=== PATIENT | female | born 1955 | race Caucasian/White ===

== ENCOUNTER 2020-12-26 06:00 | Inpatient (IN) | payer OTHER, SELFPAY ==
[2020-12-26] VITALS (9 sets, daily range): BP systolic 98–124; BP diastolic 51–58; PULSE 79–97; RESP 16–24; TEMP 36.7–36.8; O2SAT 92–100; BMI 41.5
--- NOTE | ~2020-12-26 | US_ITS ---
EXAMINATION: US VENOUS ULTRASOUND WITH DOPPLER LOWER EXTREMITY, LEFT CLINICAL INFORMATION: Edema, swelling and skin ulcers COMPARISON: None TECHNIQUE: Ultrasound of the deep veins is performed from the hip to the calf with compression sonography and color and pulse Doppler assessment. Spectral analysis with color-flow imaging is performed. FINDINGS: The veins in the left leg are not adequately visualized. Exam is nondiagnostic. There is significant soft tissue swelling/edema. US/US venous duplex LE LT IMPRESSION: Nondiagnostic exam.
--- NOTE | ~2020-12-26 | XR_ITS ---
EXAMINATION: XR CHEST CLINICAL INFORMATION: CHF COMPARISON: Previous chest x-ray August 2007 TECHNIQUE: Frontal view of the chest was obtained. FINDINGS: The patient is significantly rotated to the right. Taking into account rotation, the cardiac and mediastinal contours are unremarkable. The lungs are clear. There is no pleural effusion or pneumothorax. No acute bone abnormality is seen. XR/XR chest 1V IMPRESSION: Rotated exam. No evidence for acute disease in the chest.
--- NOTE | 2020-12-26 06:51 | ED_ITS ---
HPI - General Adult General Chief complaint: General Medical Stated complaint: left leg edema with possible infection Time Seen by Provider: 12/26/20 06:51 Source: patient Mode of arrival: EMS Limitations: no limitations History of Present Illness HPI narrative: 65-year-old obese female was brought into EMS for concerns of left lower extremity infection. Past medical history significant for coronary artery disease/ previous NH , hypertension, and uncontrolled diabetes mellitus. Surgical history significant for cardiac stents few years ago. Today this patient comes in with concerns of an infection to her left lower extremity. She states her legs have been more swollen than usual and have been worsening over the past few weeks. She states over the past week she has noted that fluid is coming out of her lower extremity, from the knee down.She states that her doctor prescribed her Lasix to take every other day, however she has not been taking his medication for about 2 months. She denies chest pain, shortness breath, abdominal pain, weakness, fevers, chills, coughs and changes in bowel habits. She also reports a rash to her right groin area, that started about 2 weeks ago and since then has progressively worsened. She states this has happened to her in the past, and has been fungal in nature.She is med noncompliant. She smokes a pack and half a day. Related Data Home Medications Medication Instructions Recorded Confirmed atorvastatin 80 mg tablet 80 mg PO DAILY 12/26/20 12/26/20 clonidine HCl 0.1 mg tablet 0.1 mg PO BID PRN 12/26/20 12/26/20 clopidogrel 75 mg tablet 75 mg PO DAILY 12/26/20 12/26/20 fluoxetine 20 mg capsule 20 mg PO DAILY 12/26/20 12/26/20 gabapentin 300 mg capsule 300 mg PO BID 12/26/20 12/26/20 insulin aspart U-100 100 unit/mL 25 unit SUBCUT TID 12/26/20 12/26/20 (3 mL) subcutaneous pen (Novolog Flexpen U-100 Insulin aspart) insulin glargine 100 unit/mL (3 85 unit SUBCUT BEDTIME 12/26/20 12/26/20 mL) subcutaneous pen (Lantus Solostar U-100 Insulin) ketoconazole 2 % topical cream 1 applic TOPICAL DAILY 12/26/20 12/26/20 lisinopril 5 mg tablet 5 mg PO DAILY 12/26/20 12/26/20 metoprolol tartrate 25 mg tablet 25 mg PO BID 12/26/20 12/26/20 nystatin 100,000 unit/gram topical 1 unit TOPICAL BID 12/26/20 12/26/20 powder (Nystop) oxycodone-acetaminophen 5 mg-325 1 tab PO TID 12/26/20 12/26/20 mg tablet Allergies Allergy/AdvReac Type Severity Reaction Status Date / Time acetaminophen [From PERCOCET] Allergy Unknown ITCHY Verified 12/26/20 12:37 Percocet Allergy Mild Itching Uncoded 12/26/20 12:37 From PERCOCET Allergy Unknown ITCHY Uncoded 12/30/19 15:01 Review of Systems Review of Systems: Constitutional : No Weight loss, No Fever, No Chills ENT/Mouth : No sore throat, No Rhinorrhea Eyes: No Eye Pain, No Swelling Cardiovascular : No Chest Pain, no palpitations Respiratory : No Cough, No Sputum, no shortness of breath Gastrointestinal : no Nausea, No Vomiting, No Diarrhea, No abdominal Pain, no black stools Genitourinary : No Dysuria, No Urinary Frequency Musculoskeletal : No joint pain, No Myalgias, No Joint Swelling Skin : No Skin Lesions, + rash Neuro : No Weakness, No Numbness, No Dizziness, No Headache Psych : No Anxiety/Panic, No Depression Heme/Lymph: No Bruising, No Lymphadenopathy Endocrine : No Polyuria, No Polydipsia All other systems reviewed and are negative [facility] Past Medical History Medical History (Updated 12/26/20 @ 10:18 by Gilberto Ferrera MD) CAD (coronary artery disease) Diabetes mellitus HTN (hypertension) with goal to be determined Neuropathy PAD (peripheral artery disease) Right below-knee amputee Surgical History (Updated 12/26/20 @ 10:18 by Gilberto Ferrera MD) Hx of right BKA Family History Family History (Updated 12/26/20 @ 10:15 by Gilberto Ferrera MD) Other Breast cancer Social History Social History (Updated 12/26/20 @ 10:18 by Gilberto Ferrera MD) Household Members: Spouse Housing: House Do you presently have visiting nurse or other home services: Yes (home health [facility]) Alcohol intake: never Patient Tobacco Use Status: Current everyday Tobacco user Tobacco use type: Cigarette Cigarette Packs Per Day: 1.5 Cigarettes Per Day: 30.0 e-Cigarette/Vaping Use: Never Used Second Hand Smoke Exposure: Yes service: No Current occupational status: disabled Physical Exam Vital Signs: Vital Signs: Last Vital Signs Temp 98.1 F 12/26/20 11:30 Pulse 85 12/26/20 14:45 Resp 16 12/26/20 14:45 BP 98/57 L 12/26/20 14:45 Pulse Ox 99 12/26/20 14:45 Oxygen Flow Rate 2 12/26/20 06:15 Body Mass Index 41.5 Appearance: Alert. Oriented X3. No acute distress. Obese Eyes: PERRLA, No pallor/icterus ENT: Pharynx normal. Oral Mucosa moist Neck: Normal inspection. Neck supple. CVS: Normal heart rate and rhythm. Pulses normal. Respiratory: No respiratory distress. Equal air entry bilateral, fine crackles noted in bilateral lower lobes. Abdomen: Soft and nontender. Bowel sounds are present, no mass palpable, no CVA tenderness Skin: Cellulitis noted to the left lower extremity. Left lower extremity is warm to palpation. below the knee amputation to the right . Extremities: 4+ edema. No calf tenderness Neuro: Oriented X 3. Appearance: Alert. Oriented X3. No acute distress. Eyes: PERRLA, No Nystagmus ENT: Pharynx normal. Oral Mucosa moist Neck: Normal inspection. Neck supple. CVS: Normal heart rate and rhythm. Pulses normal. Respiratory: No respiratory distress. Equal air entry bilateral, no wheezing/rales/rhonchi Abdomen: Soft and nontender. Bowel sounds are present, no mass palpable, no CVA tenderness Skin: Skin warm and dry. Normal skin color. Normal skin turgor. Extremities: No lower extremity edema. No calf tenderness Neuro: Oriented X 3. No motor deficit. No sensory deficit.No cerebellar signs , cranial nerves II-XII intact Medical Decision Making MDM Narrative Medical decision making narrative: White blood cell count slightly elevated as well as a slightly elevated D-dimer, + troponin. Cellulitis is likely to the left lower extremity, necrotizing fasciitis is unlikely as no subcutaneous crepitation, and lactic acid level is normal The patient appears well, and is not septic at this time. Due to the elevated D-dimer a left lower extremity duplex will be ordered to rule out DVT. Elevated troponin secondary to release as there is no chest pain we will recheck for delta change. Plan to admit patient to hospitalist service with Doppler nondiagnostic patient does not have significant pain in the calf area unlikely DVT Lab Data Lab results reviewed: Yes I reviewed the patient's lab results. Result diagrams: 12/26/20 07:45 12/26/20 07:45 Labs: Lab Results 12/26/20 12/26/20 12/26/20 Range/Units 07:45 07:45 07:45 WBC 12.4 H (4.8-10.8) X10*3/uL RBC 5.93 H (4.20-5.50) X10*6/uL Hgb 15.2 (12.0-16.0) g/dl Hct 52.7 H (37-47) % MCV 88.9 (80-98) fL MCH 25.6 L (27.0-33.0) pg MCHC 28.8 L (31.0-35.0) g/dl RDW 19.9 H (11.0-16.0) % Plt Count 244 (160-400) X10*3/uL MPV 9.6 (9.4-12.3) fL Immature Gran % (Auto) 0.6 H (0.0-0.4) % Neut % (Auto) 86.0 H (45-73) % Lymph % (Auto) 6.3 L (20-40) % Ransom % (Auto) 6.7 (2-11) % Eos % (Auto) 0.2 (0-4) % Baso % (Auto) 0.2 (0-2) % Lymph # (Auto) 0.8 L (1.2-4.9) X10*3/uL Ransom # (Auto) 0.8 (0.1-1.2) X10*3/uL Eos # (Auto) 0.0 (0.0-0.4) X10*3/uL Baso # (Auto) 0.0 (0.0-0.2) X10*3/uL Abs Immat Gran (auto) 0.08 H (0.00-0.03) X10*3/uL Absolute Neuts (auto) 10.7 H (2.0-8.3) X10*3/uL Absolute Nucleated RBC 0.000 (0.0-0.012) X10*3/uL Nucleated RBC % (auto) 0.0 (0.0-0.2) /100WBC PT (9.9-13.0) SEC INR (0.9-1.1) APTT (24.1-38.0) SEC D-Dimer NG/ML Sodium 139 (135-145) mmol/L Potassium 5.0 (3.3-5.1) mmol/L Chloride 99 (96-108) mmol/L Carbon Dioxide 32 H (22-29) mmol/L Anion Gap 13 (12-20) BUN 11 (9-16) mg/dL Creatinine 0.85 (0.5-1.4) mg/dL Estim Creat Clear Calc 85.0 Estimated GFR > 60 Random Glucose 104 (60-115) mg/dL Lactic Acid (0.5-2.0) mmol/L Calcium 9.3 (8.4-10.2) mg/dL Total Bilirubin 1.2 H (0.0-1.0) mg/dL Direct Bilirubin 0.5 (0.0-0.5) mg/dL AST 27 (5-31) U/L ALT 16 (0-31) U/L Alkaline Phosphatase 114 (39-117) U/L Troponin I High Sens (<3.5-17.0) ng/L B-Natriuretic Peptide (<100) pg/mL Total Protein 6.9 (6.5-8.0) g/dL Albumin 3.6 (3.5-5.0) g/dL Urine Color Urine Appearance Urine pH (5.0-8.0) Ur Specific [place] (1.005-1.025) Urine Protein (NEG-TRACE) MG/DL Urine Glucose (UA) (NEG) MG/DL Urine Ketones (NEG) MG/DL Urine Blood (NEG) Urine Nitrite (NEG) Ur Leukocyte Esterase (NEG) Urine RBC (0) /HPF Urine WBC (0-4) /HPF Ur Squamous Epith Cells /LPF Urine Bacteria /LPF COVID-19 ([facility]) Negative (Negative) COVID-19 Clin Com See Note 12/26/20 12/26/20 12/26/20 Range/Units 07:45 07:45 07:45 WBC (4.8-10.8) X10*3/uL RBC (4.20-5.50) X10*6/uL Hgb (12.0-16.0) g/dl Hct (37-47) % MCV (80-98) fL MCH (27.0-33.0) pg MCHC (31.0-35.0) g/dl RDW (11.0-16.0) % Plt Count (160-400) X10*3/uL MPV (9.4-12.3) fL Immature Gran % (Auto) (0.0-0.4) % Neut % (Auto) (45-73) % Lymph % (Auto) (20-40) % Ransom % (Auto) (2-11) % Eos % (Auto) (0-4) % Baso % (Auto) (0-2) % Lymph # (Auto) (1.2-4.9) X10*3/uL Ransom # (Auto) (0.1-1.2) X10*3/uL Eos # (Auto) (0.0-0.4) X10*3/uL Baso # (Auto) (0.0-0.2) X10*3/uL Abs Immat Gran (auto) (0.00-0.03) X10*3/uL Absolute Neuts (auto) (2.0-8.3) X10*3/uL Absolute Nucleated RBC (0.0-0.012) X10*3/uL Nucleated RBC % (auto) (0.0-0.2) /100WBC PT 13.3 H (9.9-13.0) SEC INR 1.2 H (0.9-1.1) APTT 33.4 (24.1-38.0) SEC D-Dimer 470 NG/ML Sodium (135-145) mmol/L Potassium (3.3-5.1) mmol/L Chloride (96-108) mmol/L Carbon Dioxide (22-29) mmol/L Anion Gap (12-20) BUN (9-16) mg/dL Creatinine (0.5-1.4) mg/dL Estim Creat Clear Calc Estimated GFR Random Glucose (60-115) mg/dL Lactic Acid 1.1 (0.5-2.0) mmol/L Calcium (8.4-10.2) mg/dL Total Bilirubin (0.0-1.0) mg/dL Direct Bilirubin (0.0-0.5) mg/dL AST (5-31) U/L ALT (0-31) U/L Alkaline Phosphatase (39-117) U/L Troponin I High Sens 50.1 H* (<3.5-17.0) ng/L B-Natriuretic Peptide 648 H (<100) pg/mL Total Protein (6.5-8.0) g/dL Albumin (3.5-5.0) g/dL Urine Color Urine Appearance Urine pH (5.0-8.0) Ur Specific [place] (1.005-1.025) Urine Protein (NEG-TRACE) MG/DL Urine Glucose (UA) (NEG) MG/DL Urine Ketones (NEG) MG/DL Urine Blood (NEG) Urine Nitrite (NEG) Ur Leukocyte Esterase (NEG) Urine RBC (0) /HPF Urine WBC (0-4) /HPF Ur Squamous Epith Cells /LPF Urine Bacteria /LPF COVID-19 ([facility]) (Negative) COVID-19 Clin Com 12/26/20 Range/Units 07:46 WBC (4.8-10.8) X10*3/uL RBC (4.20-5.50) X10*6/uL Hgb (12.0-16.0) g/dl Hct (37-47) % MCV (80-98) fL MCH (27.0-33.0) pg MCHC (31.0-35.0) g/dl RDW (11.0-16.0) % Plt Count (160-400) X10*3/uL MPV (9.4-12.3) fL Immature Gran % (Auto) (0.0-0.4) % Neut % (Auto) (45-73) % Lymph % (Auto) (20-40) % Ransom % (Auto) (2-11) % Eos % (Auto) (0-4) % Baso % (Auto) (0-2) % Lymph # (Auto) (1.2-4.9) X10*3/uL Ransom # (Auto) (0.1-1.2) X10*3/uL Eos # (Auto) (0.0-0.4) X10*3/uL Baso # (Auto) (0.0-0.2) X10*3/uL Abs Immat Gran (auto) (0.00-0.03) X10*3/uL Absolute Neuts (auto) (2.0-8.3) X10*3/uL Absolute Nucleated RBC (0.0-0.012) X10*3/uL Nucleated RBC % (auto) (0.0-0.2) /100WBC PT (9.9-13.0) SEC INR (0.9-1.1) APTT (24.1-38.0) SEC D-Dimer NG/ML Sodium (135-145) mmol/L Potassium (3.3-5.1) mmol/L Chloride (96-108) mmol/L Carbon Dioxide (22-29) mmol/L Anion Gap (12-20) BUN (9-16) mg/dL Creatinine (0.5-1.4) mg/dL Estim Creat Clear Calc Estimated GFR Random Glucose (60-115) mg/dL Lactic Acid (0.5-2.0) mmol/L Calcium (8.4-10.2) mg/dL Total Bilirubin (0.0-1.0) mg/dL Direct Bilirubin (0.0-0.5) mg/dL AST (5-31) U/L ALT (0-31) U/L Alkaline Phosphatase (39-117) U/L Troponin I High Sens (<3.5-17.0) ng/L B-Natriuretic Peptide (<100) pg/mL Total Protein (6.5-8.0) g/dL Albumin (3.5-5.0) g/dL Urine Color STRAW Urine Appearance CLOUDY Urine pH 6.0 (5.0-8.0) Ur Specific [place] 1.015 (1.005-1.025) Urine Protein 2+ H (NEG-TRACE) MG/DL Urine Glucose (UA) NEG (NEG) MG/DL Urine Ketones NEG (NEG) MG/DL Urine Blood 3+ H (NEG) Urine Nitrite NEG (NEG) Ur Leukocyte Esterase 3+ H (NEG) Urine RBC 5-9 H (0) /HPF Urine WBC 76-150 H (0-4) /HPF Ur Squamous Epith Cells NONE /LPF Urine Bacteria TRACE /LPF COVID-19 ([facility]) (Negative) COVID-19 Clin Com Imaging Data Venous US: Radiologist's impression: [address] [id number] Ultrasound Report Signed Patient: Vero Mann MR#: [id number] : 1955 Acct:[id number] Age/Sex: 65 / F ADM Date: 12/26/20 Loc: .ISO 272-[address]: Gilberto Ferrera MD Ordering Physician: Boom Posadas MD Date of Service: 12/26/20 Procedure(s): US venous duplex LE LT Accession Number(s): [id number] cc: Boom Posadas MD~ EXAMINATION:? US VENOUS ULTRASOUND WITH DOPPLER LOWER EXTREMITY, LEFT CLINICAL INFORMATION:? Edema, swelling and skin ulcers COMPARISON:? None TECHNIQUE: Ultrasound of the deep veins is performed from the hip to the calf with compression sonography and color and pulse Doppler assessment. Spectral analysis with color-flow imaging is performed. FINDINGS: The veins in the left leg are not adequately visualized. Exam is nondiagnostic. There is significant soft tissue swelling/edema. US/US venous duplex LE LT IMPRESSION: Nondiagnostic exam. Dictated By: Carmen Mendez MD Signed By: <Electronically signed by Carmen Mendez MD in OV> 12/26/20 1112 Discharge Plan Discharge Clinical Impression: Cellulitis Qualifiers: Site of cellulitis: extremity Site of cellulitis of extremity: lower extremity Laterality: left Qualified Code(s): L03.116 - Cellulitis of left lower limb Patient Disposition: Admitted As Inpatient Discharge Date/Time: 12/26/20 11:00
--- NOTE | 2020-12-26 07:05 | ECG_ITS ---
Test Reason : GENERAL MEDICINE Blood Pressure : / mmHG Vent. Rate : 089 BPM Atrial Rate : 089 BPM P-R Int : 126 ms QRS Dur : 086 ms QT Int : 358 ms P-R-T Axes : 064 065 015 degrees QTc Int : 435 ms Normal sinus rhythm Low voltage QRS Cannot rule out Anterior infarct , age undetermined Nonspecific T wave abnormality Abnormal ECG When compared with ECG of 26-AUG-2007 17:40, Heart rate has decreased Referred By: Boom Posadas Electronically Signed By:ADAM GUTIÉRREZ
--- NOTE | 2020-12-26 07:22 | PC.NURSE ---
Addendum entered by Neetu Robertson RN 12/26/20 15:28: 1525 Repositioned patient, used wedges to relieve back pressure, obtaining Jamar bed pump also for pressure relief. HOB elevated. Patient dozing and no c/o any increased pain. Addendum entered by Neetu Robertson RN 12/26/20 14:47: Repositioned and assisted with complete skin assessment. See recommendations from the wound nurse. f/c emptied for 1700ml. po intake limited, only took in 60ml. ate lunch tolerated well. Her pain level at 1330 has decreased to her baseline 3-07/22. The plan of care was explained to the patient. Her vitals remain stable and she is resting. Addendum entered by Neetu Robertson RN 12/26/20 13:46: Admission assessment completed. LLE Cellulitis. Wound care nurse assisting with wound assessment. Patient is W/C bound and pivot only. Her vitals are stable. She was c/o that she hasn't eaten, POC BS 116. Lunch given. F/C in place. She has ongoing pain at home 3-07/22. Medicated fo rpain prior to wound assessment. Original Note: PT IS AWAKE AND ALERT, CURRENTLY FEELS LIKE SHE IS GOING TO VOMIT. WILL PLACE [facility]OL[facility] GET IV ACESS AND LABS
[2020-12-26 07:54] LABS: MANUAL DIFF FLAG NO
[2020-12-26 08:02] LABS: INTERNATIONAL NORM RATIO 1.2 (0.9-1.1); Prothrombin Time 13.3 SEC (9.9-13.0)
[2020-12-26 08:05] LABS: D Dimer 470 NG/ML; Partial Thromboplastin Time 33.4 SEC (24.1-38.0)
[2020-12-26 08:08] LABS: Lactic Acid 1.1 mmol/L (0.5-2.0)
[2020-12-26 08:13] LABS: Alanine Aminotransferase 16 U/L (0-31); Albumin Level 3.6 g/dL (3.5-5.0); Alkaline Phosphatase 114 U/L (39-117); Anion Gap 13 (12-20); Aspartate Amino Transferase 27 U/L (5-31); Bilirubin Direct 0.5 mg/dL (0.0-0.5); Bilirubin Total 1.2 mg/dL (0.0-1.0); Blood Urea Nitrogen 11 mg/dL (9-16); COVID-19 Test Negative (Negative); Calcium 9.3 mg/dL (8.4-10.2); Carbon Dioxide 32 mmol/L (22-29); Chloride 99 mmol/L (96-108); Estimated Glomerular Filt Rate > 60; Glucose Random 104 mg/dL (60-115); Sodium 139 mmol/L (135-145); Total Protein 6.9 g/dL (6.5-8.0)
[2020-12-26 08:16] LABS: Basophils Percent Auto 0.2 % (0-2); Eosinophils Percent Auto 0.2 % (0-4); Hematocrit 52.7 % (37-47); Hemoglobin 15.2 g/dl (12.0-16.0); Imm Gran Abs Auto 0.08 X10*3/uL (0.00-0.03); Imm Gran Pct Auto 0.6 % (0.0-0.4); Lymphocytes Absolute Auto 0.8 X10*3/uL (1.2-4.9); Lymphocytes Percent Auto 6.3 % (20-40); Mean Corpuscular HGB Conc 28.8 g/dl (31.0-35.0); Mean Corpuscular Hemoglobin 25.6 pg (27.0-33.0); Mean Corpuscular Volume 88.9 fL (80-98); Mean Platelet Volume 9.6 fL (9.4-12.3); Monocytes Absolute Auto 0.8 X10*3/uL (0.1-1.2); Monocytes Percent Auto 6.7 % (2-11); Neutrophils Absolute Auto 10.7 X10*3/uL (2.0-8.3); Platelet Count 244 X10*3/uL (160-400); Red Blood Count 5.93 X10*6/uL (4.20-5.50); Red Cell Distribution Width 19.9 % (11.0-16.0); White Blood Count 12.4 X10*3/uL (4.8-10.8)
[2020-12-26 08:20] LABS: B Type Natriuretic Peptide 648 pg/mL (<100); Troponin-I High Sensitivity 50.1 ng/L (<3.5-17.0)
[2020-12-26 08:21] LABS: Appearance Urine CLOUDY; Color Urine STRAW; Glucose Urine UA NEG (NEG); Leukocyte Esterase Urine 3+ (NEG); Nitrite Urine NEG (NEG); Specific Gravity - Urine 1.015 (1.005-1.025); UACC Culture Trigger YES; Urine Blood 3+ (NEG); Urine Ketones NEG (NEG); Urine Protein 2+ MG/DL (NEG-TRACE)
[2020-12-26] MEDS: Furosemide 40 MG/4 ML VIAL IVPUSH (08:22)
[2020-12-26 08:33] LABS: Bacteria Urine TRACE /LPF
--- NOTE | 2020-12-26 09:13 | PM.IMHP ---
History of Present Illness Date of Service: 12/26/20 Chief Complaint: Left leg pain and weeping This is a 65-year-old female with a past medical history as outlined below who presents to the hospital with complaints of left leg redness, tenderness, swelling and weeping of 3-4 days duration. She reports that her dressings were soaking multiple times throughout the day. She denied any foul smelling drainage.reports that she has previously had cellulitis and in fact necrotizing fasciitis of the left lower extremity many years ago. She denies any fevers but does report that she has chronic chills. She denies any chest pain, shortness of breath, abdominal pain, nausea, vomiting. She reports that she attempted to get in contact with her primary care provider yesterday and was unable to do so and so she presented to the emergency room. Upon arrival to the emergency room, she was found to have left lower extremity skin changes concerning for cellulitis. She had blood cultures drawn and was given a dose of IV Kefzol on admission was requested. Review of Systems Review of Systems: General - no fevers or chills Cardiovascular - no chest pain Respiratory - no shortness of breath or cough Abdominal- no abdominal pain, nausea, vomiting, diarrhea Yes all other systems are reviewed and are negative [facility] Medical History (Updated 12/26/20 @ 10:18 by Gilberto Ferrera MD) CAD (coronary artery disease) Diabetes mellitus HTN (hypertension) with goal to be determined Neuropathy PAD (peripheral artery disease) Right below-knee amputee Family History (Updated 12/26/20 @ 10:15 by Gilberto Fererra MD) Other Breast cancer Surgical History (Updated 12/26/20 @ 10:18 by Gilberto Ferrera MD) Hx of right BKA Social History (Updated 12/26/20 @ 10:18 by Gilberto Ferrera MD) Alcohol intake: never Patient Tobacco Use Status: Current everyday Tobacco user Advance Directives: No Meds Allergies Allergy/AdvReac Type Severity Reaction Status Date / Time acetaminophen [From PERCOCET] Allergy Unknown ITCHY Unverified 12/30/19 15:01 From PERCOCET Allergy Unknown ITCHY Uncoded 12/30/19 15:01 Percocet Allergy Unknown Uncoded 10/30/11 00:00 Active Medications: Current Medications Generic Name Dose Route Start Last Admin Trade Name Freq PRN Reason Stop Dose Admin Enoxaparin Sodium 40 mg 12/26/20 09:15 Enoxaparin Sodium 40 Mg/0.4 Ml Syringe SUBCUT Q24H [facility] Cefazolin Sodium 1 gm/ Sodium 50 mls @ 100 mls/hr 12/26/20 15:00 Chloride IV Q8H [facility] Insulin Human Lispro 0 unit 12/26/20 11:30 Insulin Lispro 100 Unit/Ml 3 Ml Vial SUBCUT QIDACHS [facility] Protocol Ondansetron HCl 4 mg 12/26/20 09:09 Ondansetron Hcl 4 Mg/2 Ml Vial IVPUSH Q8H PRN Nausea and Vomiting Pharmacy Consult 1 each 12/26/20 08:35 Consult Rx Perform Med Rec MISCELLANE ONCE PRN Consult order Sodium Chloride 3 ml 12/26/20 16:00 0.9 % Sodium Chloride Flush 3 Ml Syringe IVFLUSH QSHIFT [facility] Home Medications Medication Instructions Recorded Confirmed Last Taken Type atorvastatin 80 mg tablet 80 mg PO DAILY 12/26/20 Unknown History clonidine HCl 0.1 mg tablet 0.1 mg PO BID PRN 12/26/20 Unknown History clopidogrel 75 mg tablet 75 mg PO DAILY 12/26/20 Unknown History fluoxetine 20 mg capsule 20 mg PO DAILY 12/26/20 Unknown History fluticasone propionate 50 1 spray INTRANASAL QAM 12/26/20 Unknown History mcg/actuation nasal spray,suspension furosemide 20 mg tablet 20 mg PO DAILY 12/26/20 Unknown History gabapentin 300 mg capsule 300 mg PO BID 12/26/20 Unknown History insulin glargine 100 unit/mL (3 85 unit SUBCUT DAILY 12/26/20 Unknown History mL) subcutaneous pen (Lantus Solostar U-100 Insulin) ketoconazole 2 % topical cream 1 applic TOPICAL DAILY 12/26/20 Unknown History lisinopril 5 mg tablet 5 mg PO DAILY 12/26/20 Unknown History metoprolol tartrate 25 mg tablet 25 mg PO BID 12/26/20 Unknown History nystatin 100,000 unit/gram topical 1 unit TOPICAL BID 12/26/20 Unknown History powder (Nystop) oxycodone-acetaminophen 5 mg-325 1 tab PO TID 12/26/20 Unknown History mg tablet Physical Exam Vital Signs and Narrative: Vital Signs: Last Vital Signs Temp 978 F H 12/26/20 06:15 Pulse 79 12/26/20 06:15 Resp 18 12/26/20 06:15 BP 118/58 L 12/26/20 06:15 Pulse Ox 100 12/26/20 06:15 Oxygen Flow Rate 2 12/26/20 06:15 Body Mass Index 41.5 Const: Other: Constitutional - Awake and Alert, No apparent distress Eyes - PERRLA, EOMI Cardiovascular - S1S2, RRR, No edema Respiratory - Normal lung expansion, Normal respiratory effort, No respiratory distress, CTA bilaterally Gastrointestinal - NT / ND; +BS; No rebound or guarding - No CVA tenderness Extremities - R BKA, LLE -- erythema, tenderness, edema from the knee below >50% of the limb Musculoskeletal - Normal inspection, normal ROM Skin - Warm/Dry, see pictures below Neurological - Alert & oriented x3, No focal deficit Psychological - Appropriate affect Results Labs CBC and Chem 7: 12/26/20 07:45 12/26/20 07:45 Labs: Laboratory Results - last 24 hr 12/26/20 12/26/20 12/26/20 07:45 07:45 07:45 MCV 88.9 MCH 25.6 L MCHC 28.8 L RDW 19.9 H Plt Count 244 MPV 9.6 Immature Gran % (Auto) 0.6 H Neut % (Auto) 86.0 H Lymph % (Auto) 6.3 L Carter % (Auto) 6.7 Eos % (Auto) 0.2 Baso % (Auto) 0.2 Lymph # (Auto) 0.8 L Carter # (Auto) 0.8 Eos # (Auto) 0.0 Baso # (Auto) 0.0 Abs Immat Gran (auto) 0.08 H Absolute Neuts (auto) 10.7 H Absolute Nucleated RBC 0.000 Nucleated RBC % (auto) 0.0 PT INR APTT D-Dimer Anion Gap 13 Estim Creat Clear Calc 85.0 Estimated GFR > 60 Random Glucose 104 Lactic Acid Calcium 9.3 Total Bilirubin 1.2 H Direct Bilirubin 0.5 AST 27 ALT 16 Alkaline Phosphatase 114 Troponin I High Sens B-Natriuretic Peptide Total Protein 6.9 Albumin 3.6 Urine Color Urine Appearance Urine pH Ur Specific [place] Urine Protein Urine Glucose (UA) Urine Ketones Urine Blood Urine Nitrite Ur Leukocyte Esterase Urine RBC Urine WBC Ur Squamous Epith Cells Urine Bacteria COVID-19 ([facility]) Negative COVID-19 Clin Com See Note 12/26/20 12/26/20 12/26/20 07:45 07:45 07:45 MCV MCH MCHC RDW Plt Count MPV Immature Gran % (Auto) Neut % (Auto) Lymph % (Auto) Carter % (Auto) Eos % (Auto) Baso % (Auto) Lymph # (Auto) Carter # (Auto) Eos # (Auto) Baso # (Auto) Abs Immat Gran (auto) Absolute Neuts (auto) Absolute Nucleated RBC Nucleated RBC % (auto) PT 13.3 H INR 1.2 H APTT 33.4 D-Dimer 470 Anion Gap Estim Creat Clear Calc Estimated GFR Random Glucose Lactic Acid 1.1 Calcium Total Bilirubin Direct Bilirubin AST ALT Alkaline Phosphatase Troponin I High Sens 50.1 H* B-Natriuretic Peptide 648 H Total Protein Albumin Urine Color Urine Appearance Urine pH Ur Specific [place] Urine Protein Urine Glucose (UA) Urine Ketones Urine Blood Urine Nitrite Ur Leukocyte Esterase Urine RBC Urine WBC Ur Squamous Epith Cells Urine Bacteria COVID-19 ([facility]) COVID-19 [email or web address] Com 12/26/20 07:46 MCV MCH MCHC RDW Plt Count MPV Immature Gran % (Auto) Neut % (Auto) Lymph % (Auto) Carter % (Auto) Eos % (Auto) Baso % (Auto) Lymph # (Auto) Carter # (Auto) Eos # (Auto) Baso # (Auto) Abs Immat Gran (auto) Absolute Neuts (auto) Absolute Nucleated RBC Nucleated RBC % (auto) PT INR APTT D-Dimer Anion Gap Estim Creat Clear Calc Estimated GFR Random Glucose Lactic Acid Calcium Total Bilirubin Direct Bilirubin AST ALT Alkaline Phosphatase Troponin I High Sens B-Natriuretic Peptide Total Protein Albumin Urine Color STRAW Urine Appearance CLOUDY Urine pH 6.0 Ur Specific [place] 1.015 Urine Protein 2+ H Urine Glucose (UA) NEG Urine Ketones NEG Urine Blood 3+ H Urine Nitrite NEG Ur Leukocyte Esterase 3+ H Urine RBC 5-9 H Urine WBC 76-150 H Ur Squamous Epith Cells NONE Urine Bacteria TRACE COVID-19 ([facility]) COVID-19 Clin Com Imaging Radiologist's Impressions: Impressions Chest X-Ray 12/26/20 07:05 IMPRESSION: Rotated exam. No evidence for acute disease in the chest. Assessment and Plan (1) Cellulitis: Qualifiers: Laterality: left Site of cellulitis: extremity Site of cellulitis of extremity: lower extremity Qualified Code(s): L03.116 - Cellulitis of left lower limb Status: Acute This is a 65 yo F with multiple medical problems including DM, CAD - s/p [place], 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 She has cellulitis of the LLE effecting > 50% of the limb. 1. Cellulitis of the LLE >50% of the limb. Although the patient is not currently septic, she has multiple risk factors for progression to sepsis including uncontrolled DM, obesity, prior narcotizing fasciits. continue IV kefzol, if no improvement will change antibiotics and consult ID follow up blood cultures LLE ultrasound to rule out DVT 2. Elevated HS trop-I check repeat EKG stat no chest pain, likely above 3. Elevated BNP no evidence of CHF clinically observe 4. DM sliding scale, continue long acting once med rec done 5. HLD statin 6. Mood continue baseline meds Med rec not completed at the time of this note, will continue baseline meds (as appropriate) once med rec completed. Full Code DVT pptx, Lovenox HCP -- her significant other Quality Stroke Does the patient have a stroke diagnosis?: No VTE Prior VTE?: No VTE Risk Level:: Medical - moderate - high VTE Device Contraindication: Treatment Not Indicated VTE Drug Contraindication: N/A - Med Ordered
[2020-12-26] MEDS: ondansetron HCL 4 MG/2 ML VIAL IVPUSH (09:30)
[2020-12-26] MEDS: Enoxaparin Sodium 40 MG/0.4 ML SYRINGE SUBCUT (09:30)
[2020-12-26] MEDS: Morphine Sulfate 4 MG/ML CARTRIDGE IVPUSH (10:34)
--- NOTE | 2020-12-26 11:13 | PHA.MEDREC ---
Pharmacy Consult ? Medication Reconciliation Pharmacy has completed the medication reconciliation.
[2020-12-26 12:58] LABS: Glucose, Whole Blood 116 mg/dL (60-115)
[2020-12-26] MEDS: Morphine Sulfate 2 MG/ML CARTRIDGE IVPUSH ×2 (12:59→16:42)
--- NOTE | 2020-12-26 14:31 | MHC.CM.PN ---
Attempted to meet with patient in regards to discharge planning. Nursing care currently being provided. Spoke with patient's , Filipe via telephone at [phone]. Patient lives with Filipe, uses a wheelchair for mobility and has INFORMATION [employer] TECHNICIAN's through [facility]. PCP verified. Patient received Moderna vaccines on 09/12 and 10/10. IMM explained and left at patient's bedside. Filipe will transport patient home when medically stable. Continue to monitor for d/c needs.
--- NOTE | 2020-12-26 16:14 | PC.NURSE ---
Skin/Wound Assessment completed today. Patient has moisture dermatitis under abdominal folds, Interdry applied to area. Also, has a stgae 2 pressure injury on left buttock- silver alginate applied and covered with foam. Patient has cellulitis/venous stasis ulcers to left lower extremity. EPC cream applied on edges of ulcers, silver alginate to wound beds, covered with gauze and roll gauze then liudmila bandages.
[2020-12-26 16:32] LABS: Glucose, Whole Blood 134 mg/dL (60-115)
[2020-12-26] MEDS: 0.9 % Sodium Chloride Flush 3 ML SYRINGE IVFLUSH (16:43)
--- NOTE | 2020-12-26 17:55 | PC.NURSE ---
Pt presents to the unit from the ED with a chief complaint of LLE swelling and redness with a concern for infection. Adm dx is cellulitis. She is a/o, rr even and labored when she exerts herself. She is noted to have a right bka. Her LLE was wrapped by the wound nurse. See wound nurse note. Pt c/o of generalized pain and reports difficulty getting comfortable. She has been medicated per the emar for pain with good effect. At current she is resting comfortably in her room.
[2020-12-26] MEDS: Insulin Glargine,Hum.rec.anlog 100 UNIT/ML 10 ML VIAL 50 UNIT SUBCUT (21:07)
[2020-12-26] MEDS: Metoprolol Tartrate 25 MG TABLET PO (21:07)
[2020-12-26] MEDS: Gabapentin 300 MG CAPSULE PO (21:07)
[2020-12-26 21:08] LABS: Glucose, Whole Blood 146 mg/dL (60-115)
[2020-12-27] VITALS (9 sets, daily range): BP systolic 100–130; BP diastolic 45–66; PULSE 71–80; RESP 14–20; TEMP 36.3–37.4; O2SAT 93–96; BMI 41.5
[2020-12-27] MEDS: 0.9 % Sodium Chloride Flush 3 ML SYRINGE IVFLUSH ×4 (01:48→20:49)
[2020-12-27] MEDS: Morphine Sulfate 2 MG/ML CARTRIDGE IVPUSH ×5 (01:57→23:44)
[2020-12-27 07:17] LABS: Hematocrit 47.5 % (37-47); Hemoglobin 13.5 g/dl (12.0-16.0); Mean Corpuscular HGB Conc 28.4 g/dl (31.0-35.0); Mean Corpuscular Hemoglobin 25.6 pg (27.0-33.0); Mean Platelet Volume 9.5 fL (9.4-12.3); Platelet Count 223 X10*3/uL (160-400); Red Blood Count 5.28 X10*6/uL (4.20-5.50); Red Cell Distribution Width 19.7 % (11.0-16.0); White Blood Count 10.1 X10*3/uL (4.8-10.8)
[2020-12-27 07:21] LABS: Glucose, Whole Blood 110 mg/dL (60-115)
[2020-12-27 07:37] LABS: Anion Gap 13 (12-20); Blood Urea Nitrogen 14 mg/dL (9-16); Calcium 8.7 mg/dL (8.4-10.2); Carbon Dioxide 31 mmol/L (22-29); Chloride 101 mmol/L (96-108); Estimated Glomerular Filt Rate > 60; Glucose Random 133 mg/dL (60-115); Potassium 5.2 mmol/L (3.3-5.1); Sodium 140 mmol/L (135-145)
[2020-12-27] MEDS: lisinopriL 5 MG TABLET PO (08:26)
[2020-12-27] MEDS: Metoprolol Tartrate 25 MG TABLET PO ×2 (08:26→20:48)
[2020-12-27] MEDS: FLUoxetine HCl 20 MG CAPSULE PO (08:27)
[2020-12-27] MEDS: Clopidogrel Bisulfate 75 MG TABLET PO (08:27)
[2020-12-27] MEDS: Enoxaparin Sodium 40 MG/0.4 ML SYRINGE SUBCUT (08:27)
[2020-12-27] MEDS: Gabapentin 300 MG CAPSULE PO ×2 (08:27→20:48)
[2020-12-27] MEDS: oxyCODONE HCl Immed Release 5 MG TABLET PO ×2 (09:58→20:49)
--- NOTE | 2020-12-27 11:15 | PM.IMPN ---
Progress Note: A&P (1) Cellulitis: Status: Acute Assessment and Plan: This is a 65 yo F with multiple medical problems including DM, CAD - s/p [place], 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 She has cellulitis of the LLE effecting > 50% of the limb. Cellulitis of the LLE >50% of the limb. Although the patient is not currently septic, she has multiple risk factors for progression to sepsis including uncontrolled DM, obesity, prior narcotizing fasciits. continue IV kefzol, if no improvement will change antibiotics and consult ID cx neg after 24hrs LLE ultrasound neg for DVT daily wound dressing Elevated HS trop-I No ischemic changes on EKG no chest pain, likely above Elevated BNP no evidence of CHF clinically observe DM sliding scale, continue long acting once med rec done HLD statin Mood continue baseline meds Full Code DVT pptx, Lovenox HCP -- her significant other Attending Dr. Ferrera Subjective Subjective Date of Service: 12/27/20 Review of Systems Follow up cellulitis left lower extremity leg pain, moderate Denies chest pain, shortness of breath, nausea, vomiting, diarrhea All other systems are reviewed and are negative Physical Exam Vital Signs: Vital Signs: Last Vital Signs Temp 97.5 F 12/27/20 07:22 Pulse 76 12/27/20 07:22 Resp 18 12/27/20 07:22 BP 130/66 12/27/20 07:22 Pulse Ox 95 12/27/20 07:22 Oxygen Flow Rate 2 12/26/20 06:15 Body Mass Index 41.5 Appearing in no acute distress lung sounds are clear to auscultation heart regular rate rhythm, clear S1, S2 positive bowel sounds, abdomen is soft, nontender neuro patient is alert x3, no focal deficits dressing to left lower extremity, wound not visualized Objective Data Current Medications Generic Name Dose Route Start Last Admin Trade Name Freq PRN Reason Stop Dose Admin Atorvastatin Calcium 80 mg 12/27/20 21:00 Atorvastatin Calcium 80 Mg Tablet PO BEDTIME [facility] Clonidine HCl 0.1 mg 12/26/20 12:13 Clonidine Hcl 0.1 Mg Tablet PO BID PRN anxiety Protocol Clopidogrel Bisulfate 75 mg 12/26/20 12:15 12/27/20 08:27 Clopidogrel Bisulfate 75 Mg Tablet PO 75 mg DAILY [facility] Administration Enoxaparin Sodium 40 mg 12/26/20 10:00 12/27/20 08:27 Enoxaparin Sodium 40 Mg/0.4 Ml Syringe SUBCUT 40 mg Q24H [facility] Administration Fluoxetine HCl 20 mg 12/27/20 09:00 12/27/20 08:27 Fluoxetine Hcl 20 Mg Capsule PO 20 mg DAILY [facility] Administration Gabapentin 300 mg 12/26/20 21:00 12/27/20 08:27 Gabapentin 300 Mg Capsule PO 300 mg BID [facility] Administration Cefazolin Sodium 1 gm/ Sodium 50 mls @ 100 mls/hr 12/26/20 17:00 12/27/20 09:03 Chloride IV Infused Q8H [facility] Infusion Insulin Glargine 50 unit 12/26/20 21:00 12/26/20 21:07 Insulin Glargine,Hum.Rec.Anlog 100 Unit/Ml 10 Ml Vial SUBCUT 50 unit BEDTIME [facility] Administration Insulin Human Lispro 0 unit 12/26/20 11:30 12/27/20 07:21 Insulin Lispro 100 Unit/Ml 3 Ml Vial SUBCUT Not Given QIDACHS [facility] Protocol Lisinopril 5 mg 12/27/20 09:00 12/27/20 08:26 Lisinopril 5 Mg Tablet PO 5 mg DAILY [facility] Administration Protocol Metoprolol Tartrate 25 mg 12/26/20 21:00 12/27/20 08:26 Metoprolol Tartrate 25 Mg Tablet PO 25 mg BID [facility] Administration Protocol Morphine Sulfate 2 mg 12/26/20 12:35 12/27/20 06:25 Morphine Sulfate 2 Mg/Ml Cartridge IVPUSH 2 mg Q4H PRN Administration Pain, Severe (Pain Scale 7-10) Protocol Ondansetron HCl 4 mg 12/26/20 09:09 Ondansetron Hcl 4 Mg/2 Ml Vial IVPUSH Q8H PRN Nausea and Vomiting Oxycodone HCl 5 mg 12/26/20 12:15 12/27/20 09:58 Oxycodone Hcl Immed Release 5 Mg Tablet PO 5 mg Q6H PRN Administration Pain, Severe (Pain Scale 7-10) Pharmacy Consult 1 each 12/26/20 08:35 Consult Rx Perform Med Rec MISCELLANE ONCE PRN Consult order Sodium Chloride 3 ml 12/26/20 16:00 12/27/20 08:28 0.9 % Sodium Chloride Flush 3 Ml Syringe IVFLUSH 3 ml QSHIFT [facility] Administration Labs CBC & Chem 7: 12/27/20 07:06 12/27/20 07:06 Labs: Laboratory Results - last 24 hr 12/26/20 12/26/20 12/26/20 12:53 16:28 21:04 MCV MCH MCHC RDW Plt Count MPV Absolute Nucleated RBC Nucleated RBC % (auto) Anion Gap Estim Creat Clear Calc Estimated GFR POC Glucose 116 H 134 H 146 H Random Glucose Calcium 12/27/20 12/27/20 12/27/20 07:06 07:06 07:16 MCV 90.0 MCH 25.6 L MCHC 28.4 L RDW 19.7 H Plt Count 223 MPV 9.5 Absolute Nucleated RBC 0.000 Nucleated RBC % (auto) 0.0 Anion Gap 13 Estim Creat Clear Calc 85.0 Estimated GFR > 60 POC Glucose 110 Random Glucose 133 H Calcium 8.7 D Microbiology Microbiology Results: Microbiology 12/26/20 07:46 Blood - Venous Blood Culture - Preliminary No growth after 24 hours. 12/26/20 07:46 Blood - Venous Blood Culture - Preliminary No growth after 24 hours. Quality Stroke Does the patient have a stroke diagnosis?: No VTE Prior VTE?: No VTE Risk Level:: Medical - moderate - high VTE Device Contraindication: Treatment Not Indicated VTE Drug Contraindication: N/A - Med Ordered
[2020-12-27 11:24] LABS: Glucose, Whole Blood 136 mg/dL (60-115)
--- NOTE | 2020-12-27 14:08 | MHC.CLN ---
NUTRITION CONSULT STAGE II WOUND TO LEFT BUTTOCK. ADDED GLUCERNA BID AND JEY BID TO PROVIDE 630 KCAL, 25 G PROTEIN TO PROMOTE WOUND HEALING.
[2020-12-27 16:17] LABS: Glucose, Whole Blood 155 mg/dL (60-115)
--- NOTE | 2020-12-27 16:25 | W.PM.IDCN ---
History of Present Illness Data of Consult Service Date: 12/27/20 Requesting physician: Latosha Mcgee Primary Care Provider: Ruiz Moreira MD [facility] Reason for consult: left leg erythema She presents with one week leg erythema She has no fever or chills She has weakness and discharge Review of Systems Review of Systems: Yes all other systems are reviewed and are negative [facility] Past Medical History Medical History CAD (coronary artery disease) Diabetes mellitus HTN (hypertension) with goal to be determined Neuropathy PAD (peripheral artery disease) Right below-knee amputee Family History Family History Other Breast cancer Surgical History Surgical History Hx of right BKA Social History Social History Household Members: Spouse Housing: House Do you presently have visiting nurse or other home services: Yes (home health [facility]) Alcohol intake: never Patient Tobacco Use Status: Current everyday Tobacco user Tobacco use type: Cigarette Cigarette Packs Per Day: 1.5 Cigarettes Per Day: 30.0 e-Cigarette/Vaping Use: Never Used Second Hand Smoke Exposure: Yes service: No Current occupational status: disabled Meds Allergies Allergy/AdvReac Type Severity Reaction Status Date / Time acetaminophen [From PERCOCET] Allergy Unknown ITCHY Verified 12/26/20 12:37 Percocet Allergy Mild Itching Uncoded 12/26/20 12:37 From PERCOCET Allergy Unknown ITCHY Uncoded 12/30/19 15:01 Active Medications: Current Medications Generic Name Dose Route Start Last Admin Trade Name Freq PRN Reason Stop Dose Admin Atorvastatin Calcium 80 mg 12/27/20 21:00 Atorvastatin Calcium 80 Mg Tablet PO BEDTIME [facility] Clonidine HCl 0.1 mg 12/26/20 12:13 Clonidine Hcl 0.1 Mg Tablet PO BID PRN anxiety Protocol Clopidogrel Bisulfate 75 mg 12/26/20 12:15 12/27/20 08:27 Clopidogrel Bisulfate 75 Mg Tablet PO 75 mg DAILY [facility] Administration Enoxaparin Sodium 40 mg 12/26/20 10:00 12/27/20 08:27 Enoxaparin Sodium 40 Mg/0.4 Ml Syringe SUBCUT 40 mg Q24H [facility] Administration Fluoxetine HCl 20 mg 12/27/20 09:00 12/27/20 08:27 Fluoxetine Hcl 20 Mg Capsule PO 20 mg DAILY [facility] Administration Gabapentin 300 mg 12/26/20 21:00 12/27/20 08:27 Gabapentin 300 Mg Capsule PO 300 mg BID [facility] Administration Cefazolin Sodium 1 gm/ Sodium 50 mls @ 100 mls/hr 12/26/20 17:00 12/27/20 09:03 Chloride IV Infused Q8H [facility] Infusion Insulin Glargine 50 unit 12/26/20 21:00 12/26/20 21:07 Insulin Glargine,Hum.Rec.Anlog 100 Unit/Ml 10 Ml Vial SUBCUT 50 unit BEDTIME [facility] Administration Insulin Human Lispro 0 unit 12/26/20 11:30 12/27/20 11:42 Insulin Lispro 100 Unit/Ml 3 Ml Vial SUBCUT Not Given QIDACHS [facility] Protocol Lisinopril 5 mg 12/27/20 09:00 12/27/20 08:26 Lisinopril 5 Mg Tablet PO 5 mg DAILY [facility] Administration Protocol Metoprolol Tartrate 25 mg 12/26/20 21:00 12/27/20 08:26 Metoprolol Tartrate 25 Mg Tablet PO 25 mg BID [facility] Administration Protocol Morphine Sulfate 2 mg 12/26/20 12:35 12/27/20 14:36 Morphine Sulfate 2 Mg/Ml Cartridge IVPUSH 2 mg Q4H PRN Administration Pain, Severe (Pain Scale 7-10) Protocol Ondansetron HCl 4 mg 12/26/20 09:09 Ondansetron Hcl 4 Mg/2 Ml Vial IVPUSH Q8H PRN Nausea and Vomiting Oxycodone HCl 5 mg 12/26/20 12:15 12/27/20 09:58 Oxycodone Hcl Immed Release 5 Mg Tablet PO 5 mg Q6H PRN Administration Pain, Severe (Pain Scale 7-10) Pharmacy Consult 1 each 12/26/20 08:35 Consult Rx Perform Med Rec MISCELLANE ONCE PRN Consult order Sodium Chloride 3 ml 12/26/20 16:00 12/27/20 16:08 0.9 % Sodium Chloride Flush 3 Ml Syringe IVFLUSH 3 ml QSHIFT [facility] Administration Home Medications Medication Instructions Recorded Confirmed Last Taken Type atorvastatin 80 mg tablet 80 mg PO DAILY 12/26/20 12/26/20 Unknown History clonidine HCl 0.1 mg tablet 0.1 mg PO BID PRN 12/26/20 12/26/20 Unknown History clopidogrel 75 mg tablet 75 mg PO DAILY 12/26/20 12/26/20 Unknown History fluoxetine 20 mg capsule 20 mg PO DAILY 12/26/20 12/26/20 Unknown History gabapentin 300 mg capsule 300 mg PO BID 12/26/20 12/26/20 Unknown History insulin aspart U-100 100 unit/mL 25 unit SUBCUT TID 12/26/20 12/26/20 Unknown History (3 mL) subcutaneous pen (Novolog Flexpen U-100 Insulin aspart) insulin glargine 100 unit/mL (3 85 unit SUBCUT BEDTIME 12/26/20 12/26/20 Unknown History mL) subcutaneous pen (Lantus Solostar U-100 Insulin) ketoconazole 2 % topical cream 1 applic TOPICAL DAILY 12/26/20 12/26/20 Unknown History lisinopril 5 mg tablet 5 mg PO DAILY 12/26/20 12/26/20 Unknown History metoprolol tartrate 25 mg tablet 25 mg PO BID 12/26/20 12/26/20 Unknown History nystatin 100,000 unit/gram topical 1 unit TOPICAL BID 12/26/20 12/26/20 Unknown History powder (Nystop) oxycodone-acetaminophen 5 mg-325 1 tab PO TID 12/26/20 12/26/20 Unknown History mg tablet Physical Exam Vital Signs: Vital Signs: Last Vital Signs Temp 98.8 F 12/27/20 15:57 Pulse 76 12/27/20 15:57 Resp 14 12/27/20 15:57 BP 106/46 L 12/27/20 15:57 Pulse Ox 94 12/27/20 15:57 Oxygen Flow Rate 2 12/26/20 06:15 Body Mass Index 41.5 Const: General: cooperative HENMT: Head: Yes normal to inspection Mouth: Normal oral and palatal mucosa present Resp: Effort & Inspection: normal respiratory effort Cardio: Rate: regular rate Rhythm: regular rhythm GI: Palpation (GI): Soft to palpation and nontender Extrem: Other: left leg mild erythema,amp toes Results Labs CBC & Chem 7: 12/27/20 07:06 12/27/20 07:06 Labs: Short CBC 12/27/20 Range/Units 07:06 WBC 10.1 (4.8-10.8) X10*3/uL Hgb 13.5 (12.0-16.0) g/dl Hct 47.5 H (37-47) % Plt Count 223 (160-400) X10*3/uL BMP 12/27/20 07:06 Sodium 140 Potassium 5.2 H Chloride 101 Carbon Dioxide 31 H BUN 14 Creatinine 0.85 Calcium 8.7 D Microbiology Microbiology Results: Microbiology 12/26/20 Unknown Urine Catheterized - Su Catheter Urine Culture - Preliminary Gram negative kelsey 12/26/20 07:46 Blood - Venous Blood Culture - Preliminary No growth after 24 hours. 12/26/20 07:46 Blood - Venous Blood Culture - Preliminary No growth after 24 hours. Assessment and Plan (1) Cellulitis: Qualifiers: Laterality: left Site of cellulitis: extremity Site of cellulitis of extremity: lower extremity Qualified Code(s): L03.116 - Cellulitis of left lower limb Status: Acute She probably has staph or strep There is no mention of MRSA Would continue Kefzol If doing well and no bacteremia po Keflex for a week Compression wrap
[2020-12-27] MEDS: Insulin Lispro 100 UNIT/ML 3 ML VIAL SUBCUT (16:31)
[2020-12-27] MEDS: cloNIDine HCL 0.1 MG TABLET PO (18:12)
[2020-12-27 20:32] LABS: Glucose, Whole Blood 198 mg/dL (60-115)
[2020-12-27] MEDS: Atorvastatin Calcium 80 MG TABLET PO (20:48)
[2020-12-27] MEDS: Insulin Glargine,Hum.rec.anlog 100 UNIT/ML 10 ML VIAL 50 UNIT SUBCUT (20:49)
[2020-12-28] VITALS (10 sets, daily range): BP systolic 110–137; BP diastolic 52–74; PULSE 67–78; RESP 14–20; TEMP 36.6–37.2; O2SAT 93–99
[2020-12-28] MEDS: Morphine Sulfate 2 MG/ML CARTRIDGE IVPUSH (05:18)
[2020-12-28] MEDS: oxyCODONE HCl Immed Release 5 MG TABLET PO ×3 (06:58→21:04)
--- NOTE | 2020-12-28 07:10 | PC.NURSE ---
Skin/Wound assessment completed on 12/26. Patient has a surgical opening from an I & D of abscess on left buttock that has not completely closed. Silver alginate was applied to wound and covered with foam dressing. Patient has MASD under pannis - Interdry was applied to area. Patient also has cellulitis/venous ulcers to left lower leg with redness and swelling. Silver alginate was applied to ulcers covered with gauze and roll gauze then liudmila wraps.
[2020-12-28 07:42] LABS: Glucose, Whole Blood 121 mg/dL (60-115)
[2020-12-28] MEDS: 0.9 % Sodium Chloride Flush 3 ML SYRINGE IVFLUSH ×3 (09:04→21:05)
[2020-12-28] MEDS: Enoxaparin Sodium 40 MG/0.4 ML SYRINGE SUBCUT (09:04)
[2020-12-28] MEDS: lisinopriL 5 MG TABLET PO (09:05)
[2020-12-28] MEDS: Gabapentin 300 MG CAPSULE PO ×2 (09:06→21:03)
[2020-12-28] MEDS: FLUoxetine HCl 20 MG CAPSULE PO (09:06)
[2020-12-28] MEDS: Metoprolol Tartrate 25 MG TABLET PO ×2 (09:06→21:03)
[2020-12-28] MEDS: Clopidogrel Bisulfate 75 MG TABLET PO (09:07)
[2020-12-28 11:31] LABS: Glucose, Whole Blood 150 mg/dL (60-115)
--- NOTE | 2020-12-28 11:57 | P.PNIM_ITS ---
Subjective Subjective Date of Service: 12/28/20 Interval History: Seen and examined this morning follow up for cellulitis Urine culture positive, patient does report some dysuria Reports pain all over, no specific distribution. no BM Has on low-dose supplemental oxygen due to episodes of hypoxia. No shortness of breath, no cough Review of Systems Review of Systems: Yes all other systems are reviewed and are negative Constitutional Constitutional: Denies chills and Denies fever(s) Cardiovascular Cardiovascular: Denies chest pain Respiratory Respiratory: Denies cough Gastrointestinal Gastrointestinal: Denies abdominal pain Physical Exam Vital Signs: Vital Signs: Last Vital Signs Temp 97.9 F 12/28/20 11:33 Pulse 72 12/28/20 11:33 Resp 16 12/28/20 11:33 BP 137/55 L 12/28/20 11:33 Pulse Ox 93 12/28/20 11:33 Oxygen Flow Rate 2 12/26/20 06:15 Body Mass Index 41.5 Const: General: comfortable, alert and awake Nutritional Appearance: obese HENMT: Head: Yes normocephalic and Yes atraumatic Eyes: Sclerae: sclerae normal Chest: Chest palpation & inspection: normal inspection of the chest Resp: Effort & Inspection: normal respiratory effort and no respiratory distress Cardio: Rate: regular rate Rhythm: regular rhythm GI: Palpation (GI): Soft to palpation and nontender : Other: ventura Neuro: Cranial nerves: Yes CN's II-XII intact bilaterally and Yes Bilaterally intact EOM present Extrem: Other: s/p right BKA; s/p left 1-3rd toe amps left leg with erythema, multiple shallow open wounds, no drainage at this time Objective Data Active Medications Atorvastatin Calcium (Atorvastatin Calcium 80 Mg Tablet) 80 mg PO BEDTIME [facility] Last Admin: 12/27/20 20:48 Dose: 80 mg Documented by: ANDJIM Clonidine HCl (Clonidine Hcl 0.1 Mg Tablet) 0.1 mg PO BID PRN; Protocol PRN Reason: anxiety Last Admin: 12/27/20 18:12 Dose: 0.1 mg Documented by: DABA Clopidogrel Bisulfate (Clopidogrel Bisulfate 75 Mg Tablet) 75 mg PO DAILY [facility] Last Admin: 12/28/20 09:07 Dose: 75 mg Documented by: STRANEC Enoxaparin Sodium (Enoxaparin Sodium 40 Mg/0.4 Ml Syringe) 40 mg SUBCUT Q24H [facility] Last Admin: 12/28/20 09:04 Dose: 40 mg Documented by: KATH Fluoxetine HCl (Fluoxetine Hcl 20 Mg Capsule) 20 mg PO DAILY [facility] Last Admin: 12/28/20 09:06 Dose: 20 mg Documented by: KATH Gabapentin (Gabapentin 300 Mg Capsule) 300 mg PO BID [facility] Last Admin: 12/28/20 09:06 Dose: 300 mg Documented by: KATH Cefazolin Sodium 1 gm/ Sodium (Chloride) 50 mls @ 100 mls/hr IV Q8H [facility] Last Infusion: 12/28/20 10:04 Dose: 0 mls/hr Documented by: KATH Insulin Glargine (Insulin Glargine,Hum.Rec.Anlog 100 Unit/Ml 10 Ml Vial) 50 unit SUBCUT BEDTIME [facility] Last Admin: 12/27/20 20:49 Dose: 50 unit Documented by: KENZIE Insulin Human Lispro (Insulin Lispro 100 Unit/Ml 3 Ml Vial) 0 unit SUBCUT QIDACHS [facility]; Protocol Last Admin: 12/28/20 07:55 Dose: Not Given Documented by: KATH Non-Admin Reason: No Insulin Coverage Comments: no coverage needed per order. Lactic Acid (Ammonium Lactate 12 % Lotion 226 Gm Bottle) 1 appl TOPICAL BID [facility]; Protocol Lisinopril (Lisinopril 5 Mg Tablet) 5 mg PO DAILY [facility]; Protocol Last Admin: 12/28/20 09:05 Dose: 5 mg Documented by: KATH Metoprolol Tartrate (Metoprolol Tartrate 25 Mg Tablet) 25 mg PO BID [facility]; Protocol Last Admin: 12/28/20 09:06 Dose: 25 mg Documented by: KATH Ondansetron HCl (Ondansetron Hcl 4 Mg/2 Ml Vial) 4 mg IVPUSH Q8H PRN PRN Reason: Nausea and Vomiting Oxycodone HCl (Oxycodone Hcl Immed Release 5 Mg Tablet) 5 mg PO Q6H PRN PRN Reason: Pain, Severe (Pain Scale 7-10) Last Admin: 12/28/20 06:58 Dose: 5 mg Documented by: KENZIE Pharmacy Consult (Consult Rx Perform Med Rec) 1 each MISCELLANE ONCE PRN PRN Reason: Consult order Polyethylene Glycol (Polyethylene Glycol 3350 17 Gm Powd.Pack) 17 gm PO DAILY [facility] Sodium Chloride (0.9 % Sodium Chloride Flush 3 Ml Syringe) 3 ml IVFLUSH QSHIFT [facility] Last Admin: 12/28/20 09:04 Dose: 3 ml Documented by: KATH Labs CBC & Chem 7: 12/27/20 07:06 12/27/20 07:06 Labs: Laboratory Results - last 24 hr 12/27/20 12/27/20 12/28/20 16:06 20:18 07:14 POC Glucose 155 H 198 H 121 H 12/28/20 11:27 POC Glucose 150 H Microbiology Microbiology Results: Microbiology 12/26/20 07:46 Blood Culture - Preliminary Blood - Venous No growth after 48 hours. 12/26/20 07:46 Blood Culture - Preliminary Blood - Venous No growth after 48 hours. 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 She has cellulitis of the LLE effecting > 50% of the limb. Cellulitis of the LLE Improving >50% of the limb. Although the patient is not currently septic, she has multiple risk factors for progression to sepsis including uncontrolled DM, obesity, prior narcotizing fasciits. continue IV kefzol, seen by ID, who agrees with antibiotic selection BCx negative LLE ultrasound neg for DVT daily wound dressing UTI Urine culture positive for E coli Continue above antibiotics Hypoxia not in respiratory failure likely r/t obesity hypoventilation and probable undiagnosed sleep apnea Likely exacerbated by narcotics, will titrate narcotics down Incentive spirometry Supplemental oxygen as needed Hyperkalemia, mild K 5.2 Follow BMP Elevated HS trop-I No ischemic changes on EKG no chest pain, likely above Elevated BNP no evidence of CHF clinically observe DM sliding scale, continue long acting once med rec done HLD statin Mood continue baseline meds Morbid obesity BMI 41.6 Body habitus contributing to hypoxia Full Code DVT pptx, Lovenox HCP -- her significant other Attending Dr. Ferrera Quality Stroke Does the patient have a stroke diagnosis?: No VTE Prior VTE?: No VTE Risk Level:: Medical - moderate - high VTE Device Contraindication: Treatment Not Indicated VTE Drug Contraindication: N/A - Med Ordered
[2020-12-28] MEDS: cloNIDine HCL 0.1 MG TABLET PO (16:19)
[2020-12-28 16:46] LABS: Glucose, Whole Blood 197 mg/dL (60-115)
[2020-12-28] MEDS: Insulin Lispro 100 UNIT/ML 3 ML VIAL SUBCUT (17:01)
[2020-12-28 20:15] LABS: Glucose, Whole Blood 160 mg/dL (60-115)
[2020-12-28] MEDS: Atorvastatin Calcium 80 MG TABLET PO (21:03)
[2020-12-28] MEDS: Insulin Glargine,Hum.rec.anlog 100 UNIT/ML 10 ML VIAL 50 UNIT SUBCUT (21:04)
[2020-12-29] VITALS (13 sets, daily range): BP systolic 119–145; BP diastolic 53–69; PULSE 65–75; RESP 18–20; TEMP 36.2–36.9; O2SAT 94–98
[2020-12-29] MEDS: oxyCODONE HCl Immed Release 5 MG TABLET PO ×3 (02:51→17:23)
[2020-12-29] MEDS: cloNIDine HCL 0.1 MG TABLET PO ×2 (05:45→11:57)
[2020-12-29 07:19] LABS: Anion Gap 11 (12-20); Blood Urea Nitrogen 21 mg/dL (9-16); Calcium 8.6 mg/dL (8.4-10.2); Carbon Dioxide 32 mmol/L (22-29); Chloride 99 mmol/L (96-108); Creatinine Clr Calc Pharmacy 91.5; Estimated Glomerular Filt Rate > 60; Glucose Random 168 mg/dL (60-115); Potassium 5.3 mmol/L (3.3-5.1); Sodium 137 mmol/L (135-145)
[2020-12-29 07:37] LABS: Glucose, Whole Blood 156 mg/dL (60-115)
[2020-12-29] MEDS: Clopidogrel Bisulfate 75 MG TABLET PO (08:46)
[2020-12-29] MEDS: FLUoxetine HCl 20 MG CAPSULE PO (08:46)
[2020-12-29] MEDS: Gabapentin 300 MG CAPSULE PO ×2 (08:46→21:48)
[2020-12-29] MEDS: Enoxaparin Sodium 40 MG/0.4 ML SYRINGE SUBCUT (08:46)
--- NOTE | 2020-12-29 08:46 | MHC.CM.PN ---
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 cm to cont. to follow.
[2020-12-29] MEDS: Insulin Lispro 100 UNIT/ML 3 ML VIAL SUBCUT ×4 (08:48→21:48)
[2020-12-29] MEDS: 0.9 % Sodium Chloride Flush 3 ML SYRINGE IVFLUSH ×3 (08:48→19:08)
[2020-12-29] MEDS: lisinopriL 5 MG TABLET PO (08:51)
[2020-12-29] MEDS: Metoprolol Tartrate 25 MG TABLET PO ×2 (08:51→21:48)
[2020-12-29] MEDS: Sodium Polystyrene Sulfon/Sorb 15 GM/60 ML ORAL.SUSP PO (08:52)
--- NOTE | 2020-12-29 09:04 | P.CDIC_ITS ---
CDI Concurrent Query Documentation Clarification: PHYSICIAN'S DOCUMENTATION REQUEST Date of Query: 12/29/20 0904 Patient Name: Vero Mann Admit Date: 12/26/20 Dear Doctor, Risk Factors/Clinical Indicators/Treatments PMH: Diabetes Mellitus Per H&P: Acute Cellulitis left lower extremity Please clarify the relationship between these conditions: * Yes, Cellulitis left lower extremity is related to / associated with / due to Diabetes Mellitus * No, Cellulitis left lower extremity is not related to / associated with / due to Diabetes Mellitus * Unable to determine Use of terms such as suspected, likely, concern for, or probable (associated with a specific diagnosis that is being evaluated, monitored, or treated as if it exists) are acceptable and can be coded in the inpatient setting, when documented at the time of discharge. Thank you, Ny Baltazar RN Extension: [phone] Please use your independent medical judgment in providing your response. THIS QUERY IS PART OF THE PERMANENT MEDICAL RECORD Provider Response: Other Other Diagnosis: Unlikely due to DM -- blood sugars have been controlled relatively well
[2020-12-29 10:17] LABS: ABG Refer to POC result
[2020-12-29 10:18] LABS: ABG Base Excess 7.7 mmol/L; ABG HCO3 35 mmol/L (22-26); ABG pCO2 61 mmHg (32-45); ABG pCO2 TC 59 mmHg (32-45); ABG pH 7.37 (7.35-7.45); ABG pH TC 7.38 (7.35-7.45); ABG pO2 52 mmHg (83-108); ABG pO2 TC 50 (83-108)
[2020-12-29 11:31] LABS: Glucose, Whole Blood 166 mg/dL (60-115)
--- NOTE | 2020-12-29 12:29 | MHC.CLN ---
F/U DIET=DIABETIC 1800 KCAL. SUPPLEMENT GLUCERNA BID AND JEY BID TO PROVIDE 630 KCAL, 25 G PROTEIN. STAGE II WOUND TO LEFT BUTTOCK. INTAKE MOST MEAL 50-100%. CONTINUE TO FOLLOW.
--- NOTE | 2020-12-29 12:30 | PC.RT ---
pt also trieled on room air and sats did not drop below 90%. she started at 95% on 02 thenm dropped to 90% on room and also during exercise in bed. pt does not qualify for oxygen
--- NOTE | 2020-12-29 14:12 | MHC.CM.PN ---
DP Patient accepted at [facility]. She will transport via BLS. The bed will be available 12/30/20 The airconditioning drafting officer @ [facility] will contact for time tomorrow.
--- NOTE | 2020-12-29 14:37 | HO.PM.IMPN ---
Subjective Subjective Date of Service: 12/29/20 Interval History: Seen and examined this morning Follow-up for UTI, cellulitis, hypoxia No shortness of breath, cough. Does not want Ventura catheter removed Review of Systems Review of Systems: Yes all other systems are reviewed and are negative Constitutional Constitutional: Denies chills and Denies fever(s) Cardiovascular Cardiovascular: Denies chest pain Respiratory Respiratory: Denies cough Gastrointestinal Gastrointestinal: Denies abdominal pain Physical Exam Vital Signs: Vital Signs: Last Vital Signs Temp 97.1 F 12/29/20 11:50 Pulse 73 12/29/20 11:57 Resp 20 12/29/20 11:50 BP 140/69 H 12/29/20 11:57 Pulse Ox 94 12/29/20 11:50 Oxygen Flow Rate 2 12/26/20 06:15 Body Mass Index 41.5 Const: General: comfortable, alert and awake Nutritional Appearance: obese HENMT: Head: Yes normocephalic and Yes atraumatic Eyes: Sclerae: sclerae normal Chest: Chest palpation & inspection: normal inspection of the chest Resp: Effort & Inspection: normal respiratory effort and no respiratory distress Cardio: Rate: regular rate Rhythm: regular rhythm GI: Palpation (GI): Soft to palpation and nontender : Other: ventura Neuro: Cranial nerves: Yes CN's II-XII intact bilaterally and Yes Bilaterally intact EOM present Extrem: Other: s/p right BKA; s/p left 1-3rd toe amps left leg with erythema, multiple shallow open wounds, no drainage at this time Objective Data Active Medications Atorvastatin Calcium (Atorvastatin Calcium 80 Mg Tablet) 80 mg PO BEDTIME [facility] Last Admin: 12/28/20 21:03 Dose: 80 mg Documented by: KENZIE Clonidine HCl (Clonidine Hcl 0.1 Mg Tablet) 0.1 mg PO BID PRN; Protocol PRN Reason: anxiety Last Admin: 12/29/20 11:57 Dose: 0.1 mg Documented by: SHAWN Clopidogrel Bisulfate (Clopidogrel Bisulfate 75 Mg Tablet) 75 mg PO DAILY [facility] Last Admin: 12/29/20 08:46 Dose: 75 mg Documented by: SHAWN Enoxaparin Sodium (Enoxaparin Sodium 40 Mg/0.4 Ml Syringe) 40 mg SUBCUT Q24H [facility] Last Admin: 12/29/20 08:46 Dose: 40 mg Documented by: SHAWN Fluoxetine HCl (Fluoxetine Hcl 20 Mg Capsule) 20 mg PO DAILY [facility] Last Admin: 12/29/20 08:46 Dose: 20 mg Documented by: SHAWN Gabapentin (Gabapentin 300 Mg Capsule) 300 mg PO BID [facility] Last Admin: 12/29/20 08:46 Dose: 300 mg Documented by: SHAWN Cefazolin Sodium 1 gm/ Sodium (Chloride) 50 mls @ 100 mls/hr IV Q8H [facility] Last Infusion: 12/29/20 09:18 Dose: 0 mls/hr Documented by: SHAWN Insulin Glargine (Insulin Glargine,Hum.Rec.Anlog 100 Unit/Ml 10 Ml Vial) 50 unit SUBCUT BEDTIME [facility] Last Admin: 12/28/20 21:04 Dose: 50 unit Documented by: KENZIE Insulin Human Lispro (Insulin Lispro 100 Unit/Ml 3 Ml Vial) 0 unit SUBCUT QIDACHS [facility]; Protocol Last Admin: 12/29/20 11:57 Dose: 2 unit Documented by: SHAWN Lactic Acid (Ammonium Lactate 12 % Lotion 226 Gm Bottle) 1 appl TOPICAL BID [facility]; Protocol Last Admin: 12/29/20 14:31 Dose: Not Given Documented by: SHAWN Non-Admin Reason: Med Not Available Lisinopril (Lisinopril 5 Mg Tablet) 5 mg PO DAILY [facility]; Protocol Last Admin: 12/29/20 08:51 Dose: 5 mg Documented by: SHAWN Metoprolol Tartrate (Metoprolol Tartrate 25 Mg Tablet) 25 mg PO BID [facility]; Protocol Last Admin: 12/29/20 08:51 Dose: 25 mg Documented by: SHAWN Ondansetron HCl (Ondansetron Hcl 4 Mg/2 Ml Vial) 4 mg IVPUSH Q8H PRN PRN Reason: Nausea and Vomiting Oxycodone HCl (Oxycodone Hcl Immed Release 5 Mg Tablet) 5 mg PO Q6H PRN PRN Reason: Pain, Severe (Pain Scale 7-10) Last Admin: 12/29/20 11:09 Dose: 5 mg Documented by: SHAWN Pharmacy Consult (Consult Rx Perform Med Rec) 1 each MISCELLANE ONCE PRN PRN Reason: Consult order Polyethylene Glycol (Polyethylene Glycol 3350 17 Gm Powd.Pack) 17 gm PO DAILY [facility] Last Admin: 12/29/20 08:46 Dose: Not Given Documented by: SHAWN Non-Admin Reason: Patient Refused Sodium Chloride (0.9 % Sodium Chloride Flush 3 Ml Syringe) 3 ml IVFLUSH QSHIFT [facility] Last Admin: 12/29/20 08:48 Dose: 3 ml Documented by: SHAWN Labs CBC & Chem 7: 12/27/20 07:06 12/29/20 06:33 Labs: Laboratory Results - last 24 hr 12/28/20 12/28/20 12/29/20 16:40 20:07 06:33 O2 Saturation ABG pH at Pt Temp ABG pH (Temp Correct) ABG pCO2 at Pt Temp ABG pCO2 (Temp Corrct ABG pO2 at Pt Temp ABG pO2 (Temp Correct ABG HCO3 ABG Base Excess (Actual) Anion Gap 11 L Estim Creat Clear Calc 91.5 Estimated GFR > 60 POC Glucose 197 H 160 H Random Glucose 168 H Calcium 8.6 12/29/20 12/29/20 12/29/20 07:28 10:10 11:26 O2 Saturation 78.0 ABG pH at Pt Temp 7.37 ABG pH (Temp Correct) 7.38 ABG pCO2 at Pt Temp 61 H* ABG pCO2 (Temp Corrct 59 H ABG pO2 at Pt Temp 52 L ABG pO2 (Temp Correct 50 L* ABG HCO3 35 H ABG Base Excess (Actual) 7.7 Anion Gap Estim Creat Clear Calc Estimated GFR POC Glucose 156 H 166 H Random Glucose Calcium Assessment and Plan (1) Morbid obesity with BMI of 40.0-44.9, adult: Status: Acute (2) UTI (urinary tract infection): Status: Acute (3) Cellulitis: Status: Acute (4) Obesity hypoventilation syndrome: Status: Acute Assessment and Plan: This is a 65 yo F with multiple medical problems including DM, CAD - s/p [place], 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 She has cellulitis of the LLE effecting > 50% of the limb. Cellulitis of the LLE Improving >50% of the limb. Although the patient is not currently septic, she has multiple risk factors for progression to sepsis including uncontrolled DM, obesity, prior narcotizing fasciits. continue IV kefzol, seen by ID, plan for po keflex on d/c total 7 day duration BCx negative LLE ultrasound neg for DVT daily wound dressing, compression wrap UTI Urine culture positive for E coli Continue above antibiotics Hypoxia not in respiratory failure likely r/t obesity hypoventilation and probable undiagnosed sleep apnea Likely exacerbated by narcotics, will titrate narcotics down Incentive spirometry Qualifies for home O2, wean as tolerated Will need outpatient Pulmonary evaluation Hyperkalemia, mild K 5.3 given dose of kayexalate Follow BMP Elevated HS trop-I No ischemic changes on EKG no chest pain, likely above Elevated BNP no evidence of CHF clinically observe DM continue lantus, SSI HLD statin Mood continue baseline meds Morbid obesity BMI 41.6 Body habitus contributing to hypoxia Full Code DVT pptx, Lovenox HCP -- her significant other Disposition-to [facility] tomorrow Attending Dr. Ferrera Quality Stroke Does the patient have a stroke diagnosis?: No VTE Prior VTE?: No VTE Risk Level:: Medical - moderate - high VTE Device Contraindication: Treatment Not Indicated VTE Drug Contraindication: N/A - Med Ordered
[2020-12-29 17:03] LABS: Glucose, Whole Blood 185 mg/dL (60-115)
[2020-12-29] MEDS: Acetaminophen 325 MG TABLET 650 MG PO (19:08)
[2020-12-29 20:33] LABS: Glucose, Whole Blood 175 mg/dL (60-115)
[2020-12-29] MEDS: Atorvastatin Calcium 80 MG TABLET PO (21:48)
[2020-12-29] MEDS: Ammonium Lactate 12 % Lotion 226 GM BOTTLE 1 APPL TOPICAL (21:51)
[2020-12-30] VITALS (9 sets, daily range): BP systolic 117–147; BP diastolic 58–74; PULSE 67–69; RESP 16–20; TEMP 36.1–36.9; O2SAT 94–96
[2020-12-30] MEDS: oxyCODONE HCl Immed Release 5 MG TABLET PO ×3 (05:28→20:22)
[2020-12-30 07:22] LABS: Glucose, Whole Blood 167 mg/dL (60-115)
--- NOTE | 2020-12-30 08:20 | P.DS_ITS ---
DS: Providers Provider Date of Service: 01/01/21 Date of admission: 12/26/20 09:09 Primary care physician: Ruiz Moreira MD Consults: 12/27/20 11:42 Consult to Infectious Diseases Routine Consulting Provider: Michelle Shannon Reason for consultation: cellulitis Has provider been notified: No Attending physician on discharge: Gilberto Ferrera Discharging clinician: Latosha Mcgee DS: Diagnosis Discharge Diagnosis (1) Cellulitis: Status: Acute (2) Morbid obesity with BMI of 40.0-44.9, adult: Status: Acute (3) UTI (urinary tract infection): Status: Acute (4) Obesity hypoventilation syndrome: Status: Acute DS: Summary Hospital Course Hospital Course: HP as per admitting provider This is a 65-year-old female with a past medical history as outlined below who presents to the hospital with complaints of left leg redness, tenderness, swelling and weeping of 3-4 days duration.? She reports that her dressings were soaking multiple times throughout the day.? She denied any foul smelling drainage.reports that she has previously had cellulitis and in fact necrotizing fasciitis of the left lower extremity many years ago.? She denies any fevers but does report that she has chronic chills.? She denies any chest pain, shortness of breath, abdominal pain, nausea, vomiting.? She reports that she attempted to get in contact with her primary care provider yesterday and was unable to do so and so she presented to the emergency room. Upon arrival to the emergency room, she was found to have left lower extremity skin changes concerning for cellulitis.? She had blood cultures drawn and was given a dose of IV Kefzol on admission was requested . Cellulitis . Cellulitis of greater than 50% of left limb, no sepsis. History of obesity, uncontrolled diabetes and necrotizing fasciitis. She was placed on IV Kefzol. Blood cultures were negative. Seen and evaluated by infectious disease with recommendation for total of 7 day duration. She will need 2 more days. Wound care instructions as per wound care nurse: Cleanse buttocks and legs with soap and water. Apply silver alginate to right buttock surgical wound cover with foam dressing. Apply Triad to left leg ulcer cover with gauze and roll gauze then apply liudmila wrap. Apply interdry in abdominal folds for excoriation. Interdry may be used up to 5 days unless soiled or saturated. Urinary tract infection. Urine culture positive for E coli. Will continue, oral capsule for 2 more days. Obesity hypoventilation syndrome. Will need outpatient pulmonary consultation for sleep study. Qualifies for home oxygen. Will be sent to short-term rehab with 2 L nasal cannula. Time Spent with Patient Time attestation: Total time spent providing and/or coordinating discharge services: Discharge coordination time: Greater than 30 minutes Quality: Stroke Does the patient have a stroke diagnosis?: No Physical Exam Vital Signs: Vital Signs: Last Vital Signs Temp 97 F 12/30/20 07:35 Pulse 68 12/30/20 07:35 Resp 18 12/30/20 07:35 BP 123/64 12/30/20 07:35 Pulse Ox 95 12/30/20 07:35 Oxygen Flow Rate 2 12/26/20 06:15 Body Mass Index 41.5 Appearing in no acute distress head is normocephalic atraumatic eyes pupils are PERRLA sclera is anicteric mouth throat mucous membranes are intact and moist neck is supple no lymphadenopathy, no JVD noted lung sounds are clear to auscultation heart regular rate rhythm, clear S1, S2 positive bowel sounds, abdomen is soft, nontender, obese neuro patient is alert x3, no focal deficits Right BKA Left leg with multiple ulcers. DS: Data Data Completed and Pending Labs on day of discharge: Laboratory Results - last 24 hr 12/29/20 12/29/20 12/29/20 10:10 11:26 16:39 O2 Saturation 78.0 ABG pH at Pt Temp 7.37 ABG pH (Temp Correct) 7.38 ABG pCO2 at Pt Temp 61 H* ABG pCO2 (Temp Corrct 59 H ABG pO2 at Pt Temp 52 L ABG pO2 (Temp Correct 50 L* ABG HCO3 35 H ABG Base Excess (Actual) 7.7 POC Glucose 166 H 185 H 12/29/20 12/30/20 20:28 07:14 O2 Saturation ABG pH at Pt Temp ABG pH (Temp Correct) ABG pCO2 at Pt Temp ABG pCO2 (Temp Corrct ABG pO2 at Pt Temp ABG pO2 (Temp Correct ABG HCO3 ABG Base Excess (Actual) POC Glucose 175 H 167 H Preliminary micro results at discharge 12/26/20 07:46 Blood Culture - Preliminary Blood - Venous No growth after 48 hours. 12/26/20 07:46 Blood Culture - Preliminary Blood - Venous No growth after 48 hours. Discharge Plan Discharge Anticipated Discharge Date/Time: 01/01/21 02:00 Patient Disposition: Xfer SNF Discharge Diagnosis: Left lower extremity cellulitis UTI Morbid obesity Obesity hypoventilation Referrals: [facility] [Outside] - 1 Week Ruiz Moreira MD [Primary Care Provider] - 1 Week Michael Mcgee MD [Physician] - 1 Week (Follow up for sleep study ) Discharge Medications: New cephalexin 500 mg capsule 500 mg PO BID 2 Days Qty: 4 RF: 0 Continued atorvastatin 80 mg tablet 80 mg PO DAILY RF: 0 clonidine HCl 0.1 mg tablet 0.1 mg PO BID PRN (Reason: anxiety) RF: 0 clopidogrel 75 mg tablet 75 mg PO DAILY RF: 0 oxycodone-acetaminophen 5-325 mg tablet 1 tab PO TID RF: 0 gabapentin 300 mg capsule 300 mg PO BID RF: 0 lisinopril 5 mg tablet 5 mg PO DAILY RF: 0 nystatin [Nystop] 100,000 unit/gram powder 1 unit topical BID RF: 0 ketoconazole 2 % cream 1 applic topical DAILY RF: 0 fluoxetine 20 mg capsule 20 mg PO DAILY RF: 0 metoprolol tartrate 25 mg tablet 25 mg PO BID RF: 0 Lantus Solostar U-100 Insulin 100 unit/mL (3 mL) insulin pen 85 unit subcut BEDTIME RF: 0 insulin aspart U-100 [Novolog Flexpen U-100 Insulin] 100 unit/mL (3 mL) insulin pen 25 unit subcut TID RF: 0 Discharge Orders: Discharge Order (Routine); Ordered 01/01/21 Ordered By: Latosha Mcgee Diet: advance to usual diet Activity on Discharge: As tolerated Stand Alone Forms: Patient Portal Discharge page Activity Restrictions/Additional Instructions: Wound care instructions: Cleanse buttocks and legs with soap and water. Apply silver alginate to right buttock surgical wound cover with foam dressing. Apply Triad to left leg ulcer cover with gauze and roll gauze then apply liudmila wrap. Apply interdry in abdominal folds for excoriation. Interdry may be used up to 5 days unless soiled or saturated. Care Plan Goals: See below Health Concerns: Cellulitis UTI hypoxia Plan of Treatment: Complete course of antibiotics for cellulitis and UTI - 2 more days Use compression wrap for left leg Continue local wound care, may need outpatient follow up in wound care center Continue supplemental oxygen at 2L, qualifies for home oxygen - will need outpatient follow-up with pulmonology for formal sleep study Assessment: Stable for discharge
[2020-12-30] MEDS: Insulin Lispro 100 UNIT/ML 3 ML VIAL SUBCUT (08:48)
[2020-12-30] MEDS: FLUoxetine HCl 20 MG CAPSULE PO (08:48)
[2020-12-30] MEDS: Gabapentin 300 MG CAPSULE PO ×2 (08:48→20:24)
[2020-12-30] MEDS: Metoprolol Tartrate 25 MG TABLET PO ×2 (08:49→20:24)
[2020-12-30] MEDS: lisinopriL 5 MG TABLET PO (08:49)
[2020-12-30] MEDS: cloNIDine HCL 0.1 MG TABLET PO ×2 (08:49→20:44)
[2020-12-30] MEDS: 0.9 % Sodium Chloride Flush 3 ML SYRINGE IVFLUSH ×2 (08:49→17:29)
[2020-12-30] MEDS: Clopidogrel Bisulfate 75 MG TABLET PO (08:50)
[2020-12-30] MEDS: Enoxaparin Sodium 40 MG/0.4 ML SYRINGE SUBCUT (08:50)
[2020-12-30] MEDS: Ammonium Lactate 12 % Lotion 226 GM BOTTLE 1 APPL TOPICAL ×2 (09:06→22:06)
[2020-12-30 11:15] LABS: Glucose, Whole Blood 149 mg/dL (60-115)
--- NOTE | 2020-12-30 13:04 | PM.IMPN ---
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 She has cellulitis of the LLE effecting > 50% of the limb. Cellulitis of the LLE Improving >50% of the limb. Although the patient is not currently septic, she has multiple risk factors for progression to sepsis including uncontrolled DM, obesity, prior narcotizing fasciits. continue IV kefzol, seen by ID, plan for po keflex on d/c total 7 day duration BCx negative LLE ultrasound neg for DVT daily wound dressing, compression wrap UTI Urine culture positive for E coli Continue above antibiotics Hypoxia not in respiratory failure likely r/t obesity hypoventilation and probable undiagnosed sleep apnea Likely exacerbated by narcotics, will titrate narcotics down Incentive spirometry Qualifies for home O2, wean as tolerated Will need outpatient Pulmonary evaluation Hyperkalemia, mild given dose of kayexalate Follow BMP Elevated HS trop-I No ischemic?changes on EKG no chest pain, likely above Elevated BNP no evidence of CHF clinically observe DM continue lantus, SSI HLD statin Mood continue baseline meds Morbid obesity BMI 41.6 Body habitus contributing to hypoxia Full Code DVT pptx, Lovenox HCP -- her significant other Attending Dr. Albert Disposition-to [facility] when bed ready Subjective Subjective Date of Service: 12/30/20 Review of Systems Follow-up cellulitis, UTI, hypoxia Resting in bed, complaining of some back pain, left leg pain from sitting in bed Denied chest pain, shortness of breath, nausea, vomiting, diarrhea Physical Exam Vital Signs: Vital Signs: Last Vital Signs Temp 97.1 F 12/30/20 11:32 Pulse 67 12/30/20 11:32 Resp 18 12/30/20 11:32 BP 147/74 H 12/30/20 11:32 Pulse Ox 94 12/30/20 11:32 Oxygen Flow Rate 2 12/26/20 06:15 Body Mass Index 41.5 Appearing in no acute distress lung sounds are clear to auscultation heart regular rate rhythm, clear S1, S2 positive bowel sounds, abdomen is soft, nontender neuro patient is alert x3, no focal deficits Right leg BKA chronic Left buttock I&D abscess Venous ulcers to left lower extremity with erythema and edema Objective Data Current Medications Acetaminophen (Acetaminophen 325 Mg Tablet) 650 mg PO Q6H PRN PRN Reason: Pain, Mild (Pain Scale 1-3) Last Admin: 12/29/20 19:08 Dose: 650 mg Documented by: Atorvastatin Calcium (Atorvastatin Calcium 80 Mg Tablet) 80 mg PO BEDTIME JOCELIN Last Admin: 12/29/20 21:48 Dose: 80 mg Documented by: Clonidine HCl (Clonidine Hcl 0.1 Mg Tablet) 0.1 mg PO BID PRN; Protocol PRN Reason: anxiety Last Admin: 12/30/20 08:49 Dose: 0.1 mg Documented by: Clopidogrel Bisulfate (Clopidogrel Bisulfate 75 Mg Tablet) 75 mg PO DAILY [facility] Last Admin: 12/30/20 08:50 Dose: 75 mg Documented by: Enoxaparin Sodium (Enoxaparin Sodium 40 Mg/0.4 Ml Syringe) 40 mg SUBCUT Q24H [facility] Last Admin: 12/30/20 08:50 Dose: 40 mg Documented by: Fluoxetine HCl (Fluoxetine Hcl 20 Mg Capsule) 20 mg PO DAILY [facility] Last Admin: 12/30/20 08:48 Dose: 20 mg Documented by: Gabapentin (Gabapentin 300 Mg Capsule) 300 mg PO BID [facility] Last Admin: 12/30/20 08:48 Dose: 300 mg Documented by: Cefazolin Sodium 1 gm/ Sodium (Chloride) 50 mls @ 100 mls/hr IV Q8H [facility] Last Infusion: 12/30/20 09:32 Dose: Infused Documented by: Insulin Glargine (Insulin Glargine,Hum.Rec.Anlog 100 Unit/Ml 10 Ml Vial) 50 unit SUBCUT BEDTIME [facility] Last Admin: 12/29/20 21:48 Dose: Not Given Documented by: Insulin Human Lispro (Insulin Lispro 100 Unit/Ml 3 Ml Vial) 0 unit SUBCUT QIDACHS [facility]; Protocol Last Admin: 12/30/20 11:37 Dose: Not Given Documented by: Lactic Acid (Ammonium Lactate 12 % Lotion 226 Gm Bottle) 1 appl TOPICAL BID [facility]; Protocol Last Admin: 12/30/20 09:06 Dose: 1 appl Documented by: Lisinopril (Lisinopril 5 Mg Tablet) 5 mg PO DAILY [facility]; Protocol Last Admin: 12/30/20 08:49 Dose: 5 mg Documented by: Metoprolol Tartrate (Metoprolol Tartrate 25 Mg Tablet) 25 mg PO BID [facility]; Protocol Last Admin: 12/30/20 08:49 Dose: 25 mg Documented by: Ondansetron HCl (Ondansetron Hcl 4 Mg/2 Ml Vial) 4 mg IVPUSH Q8H PRN PRN Reason: Nausea and Vomiting Oxycodone HCl (Oxycodone Hcl Immed Release 5 Mg Tablet) 5 mg PO Q6H PRN PRN Reason: Pain, Severe (Pain Scale 7-10) Last Admin: 12/30/20 11:33 Dose: 5 mg Documented by: Pharmacy Consult (Consult Rx Perform Med Rec) 1 each MISCELLANE ONCE PRN PRN Reason: Consult order Polyethylene Glycol (Polyethylene Glycol 3350 17 Gm Powd.Pack) 17 gm PO DAILY [facility] Last Admin: 12/30/20 09:32 Dose: Not Given Documented by: Sodium Chloride (0.9 % Sodium Chloride Flush 3 Ml Syringe) 3 ml IVFLUSH QSHIFT [facility] Last Admin: 12/30/20 08:49 Dose: 3 ml Documented by: Labs CBC & Chem 7: 12/27/20 07:06 12/29/20 06:33 Labs: Laboratory Results - last 24 hr 12/29/20 12/29/20 12/30/20 16:39 20:28 07:14 POC Glucose 185 H 175 H 167 H 12/30/20 10:58 POC Glucose 149 H Microbiology Microbiology Results: Microbiology 12/26/20 07:46 Blood - Venous Blood Culture - Preliminary No growth after 48 hours. 12/26/20 07:46 Blood - Venous Blood Culture - Preliminary No growth after 48 hours. 12/26/20 Unknown Urine Catheterized - Su Catheter Urine Culture - Final Escherichia coli Quality Stroke Does the patient have a stroke diagnosis?: No VTE Prior VTE?: No VTE Risk Level:: Medical - moderate - high VTE Device Contraindication: Treatment Not Indicated VTE Drug Contraindication: N/A - Med Ordered
[2020-12-30 17:03] LABS: Glucose, Whole Blood 133 mg/dL (60-115)
[2020-12-30] MEDS: Acetaminophen 325 MG TABLET 650 MG PO (17:28)
[2020-12-30] MEDS: Atorvastatin Calcium 80 MG TABLET PO (20:24)
[2020-12-30 21:08] LABS: Glucose, Whole Blood 133 mg/dL (60-115)
[2020-12-30] MEDS: Insulin Glargine,Hum.rec.anlog 100 UNIT/ML 10 ML VIAL 50 UNIT SUBCUT (22:04)
[2020-12-31] VITALS (9 sets, daily range): BP systolic 127–152; BP diastolic 61–66; PULSE 66–73; RESP 18–20; TEMP 36.1–36.3; O2SAT 96–98
[2020-12-31] MEDS: 0.9 % Sodium Chloride Flush 3 ML SYRINGE IVFLUSH ×3 (00:36→16:16)
[2020-12-31] MEDS: oxyCODONE HCl Immed Release 5 MG TABLET PO ×3 (06:00→22:08)
[2020-12-31 07:08] LABS: Glucose, Whole Blood 143 mg/dL (60-115)
[2020-12-31 07:26] LABS: Anion Gap 11 (12-20); Blood Urea Nitrogen 15 mg/dL (9-16); Calcium 8.8 mg/dL (8.4-10.2); Carbon Dioxide 34 mmol/L (22-29); Chloride 98 mmol/L (96-108); Estimated Glomerular Filt Rate > 60; Glucose Random 146 mg/dL (60-115); Potassium 4.8 mmol/L (3.3-5.1); Sodium 138 mmol/L (135-145)
[2020-12-31] MEDS: Clopidogrel Bisulfate 75 MG TABLET PO (08:29)
[2020-12-31] MEDS: Gabapentin 300 MG CAPSULE PO ×2 (08:29→22:08)
[2020-12-31] MEDS: Metoprolol Tartrate 25 MG TABLET PO ×2 (08:29→22:08)
[2020-12-31] MEDS: Enoxaparin Sodium 40 MG/0.4 ML SYRINGE SUBCUT (08:29)
[2020-12-31] MEDS: FLUoxetine HCl 20 MG CAPSULE PO (08:29)
[2020-12-31] MEDS: Acetaminophen 325 MG TABLET 650 MG PO (08:29)
[2020-12-31] MEDS: lisinopriL 5 MG TABLET PO (08:29)
[2020-12-31] MEDS: Ammonium Lactate 12 % Lotion 226 GM BOTTLE 1 APPL TOPICAL ×2 (08:30→22:09)
[2020-12-31 11:08] LABS: Glucose, Whole Blood 148 mg/dL (60-115)
--- NOTE | 2020-12-31 12:50 | P.PNIM_ITS ---
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 She has cellulitis of the LLE effecting > 50% of the limb. Cellulitis of the LLE Improving >50% of the limb. Although the patient is not currently septic, she has multiple risk factors for progression to sepsis including uncontrolled DM, obesity, prior narcotizing fasciits. continue IV kefzol, seen by ID, plan for po keflex on d/c total 7 day duration BCx negative LLE ultrasound neg for DVT daily wound dressing, compression wrap UTI Urine culture positive for E coli Continue above antibiotics Hypoxia not in respiratory failure likely r/t obesity hypoventilation and probable undiagnosed sleep apnea Likely exacerbated by narcotics, will titrate narcotics down Incentive spirometry Qualifies for home O2, wean as tolerated Will need outpatient Pulmonary evaluation Hyperkalemia, mild given dose of kayexalate Follow BMP Elevated HS trop-I No ischemic?changes on EKG no chest pain, likely above Elevated BNP no evidence of CHF clinically observe DM continue lantus, SSI HLD statin Mood continue baseline meds Morbid obesity BMI 41.6 Body habitus contributing to hypoxia Full Code DVT pptx, Lovenox HCP -- her significant other Attending Dr. Albert Disposition-to [facility]? when bed ready Subjective Subjective Date of Service: 01/01/21 Review of Systems Follow-up cellulitis, UTI, hypoxia Resting in bed, complaining of some back pain, left leg pain from sitting in bed Denied chest pain, shortness of breath, nausea, vomiting, diarrhea Physical Exam Vital Signs: Vital Signs: Last Vital Signs Temp 97 F 12/31/20 11:17 Pulse 70 12/31/20 11:17 Resp 18 12/31/20 11:17 BP 140/61 H 12/31/20 11:17 Pulse Ox 98 12/31/20 11:17 Oxygen Flow Rate 2 12/26/20 06:15 Body Mass Index 41.5 Appearing in no acute distress ?lung sounds are clear to auscultation ?heart regular rate rhythm, clear? S1, S2 ?positive bowel sounds, abdomen is soft, nontender ?neuro patient is alert x3, no focal deficits ?Right leg BKA chronic Left buttock I&D abscess Venous ulcers to left lower extremity with erythema and edema ? Objective Data Current Medications Acetaminophen (Acetaminophen 325 Mg Tablet) 650 mg PO Q6H PRN PRN Reason: Pain, Mild (Pain Scale 1-3) Last Admin: 12/31/20 08:29 Dose: 650 mg Documented by: Atorvastatin Calcium (Atorvastatin Calcium 80 Mg Tablet) 80 mg PO BEDTIME [facility] Last Admin: 12/30/20 20:24 Dose: 80 mg Documented by: Clonidine HCl (Clonidine Hcl 0.1 Mg Tablet) 0.1 mg PO BID PRN; Protocol PRN Reason: anxiety Last Admin: 12/30/20 20:44 Dose: 0.1 mg Documented by: Clopidogrel Bisulfate (Clopidogrel Bisulfate 75 Mg Tablet) 75 mg PO DAILY [facility] Last Admin: 12/31/20 08:29 Dose: 75 mg Documented by: Enoxaparin Sodium (Enoxaparin Sodium 40 Mg/0.4 Ml Syringe) 40 mg SUBCUT Q24H [facility] Last Admin: 12/31/20 08:29 Dose: 40 mg Documented by: Fluoxetine HCl (Fluoxetine Hcl 20 Mg Capsule) 20 mg PO DAILY [facility] Last Admin: 12/31/20 08:29 Dose: 20 mg Documented by: Gabapentin (Gabapentin 300 Mg Capsule) 300 mg PO BID [facility] Last Admin: 12/31/20 08:29 Dose: 300 mg Documented by: Cefazolin Sodium 1 gm/ Sodium (Chloride) 50 mls @ 100 mls/hr IV Q8H [facility] Last Infusion: 12/31/20 10:01 Dose: Infused Documented by: Insulin Glargine (Insulin Glargine,Hum.Rec.Anlog 100 Unit/Ml 10 Ml Vial) 50 unit SUBCUT BEDTIME [facility] Last Admin: 12/30/20 22:04 Dose: 50 unit Documented by: Insulin Human Lispro (Insulin Lispro 100 Unit/Ml 3 Ml Vial) 0 unit SUBCUT QIDACHS [facility]; Protocol Last Admin: 12/31/20 11:26 Dose: Not Given Documented by: Lactic Acid (Ammonium Lactate 12 % Lotion 226 Gm Bottle) 1 appl TOPICAL BID [facility]; Protocol Last Admin: 12/31/20 08:30 Dose: 1 appl Documented by: Lisinopril (Lisinopril 5 Mg Tablet) 5 mg PO DAILY [facility]; Protocol Last Admin: 12/31/20 08:29 Dose: 5 mg Documented by: Metoprolol Tartrate (Metoprolol Tartrate 25 Mg Tablet) 25 mg PO BID [facility]; Protocol Last Admin: 12/31/20 08:29 Dose: 25 mg Documented by: Ondansetron HCl (Ondansetron Hcl 4 Mg/2 Ml Vial) 4 mg IVPUSH Q8H PRN PRN Reason: Nausea and Vomiting Pharmacy Consult (Consult Rx Perform Med Rec) 1 each MISCELLANE ONCE PRN PRN Reason: Consult order Polyethylene Glycol (Polyethylene Glycol 3350 17 Gm Powd.Pack) 17 gm PO DAILY [facility] Last Admin: 12/31/20 09:25 Dose: Not Given Documented by: Sodium Chloride (0.9 % Sodium Chloride Flush 3 Ml Syringe) 3 ml IVFLUSH QSHIFT [facility] Last Admin: 12/31/20 08:30 Dose: 3 ml Documented by: Labs CBC & Chem 7: 12/27/20 07:06 12/31/20 06:21 Labs: Laboratory Results - last 24 hr 12/30/20 12/30/20 12/31/20 16:45 21:04 06:21 Anion Gap 11 L Estim Creat Clear Calc 113.0 Estimated GFR > 60 POC Glucose 133 H 133 H Random Glucose 146 H Calcium 8.8 12/31/20 12/31/20 07:02 11:03 Anion Gap Estim Creat Clear Calc Estimated GFR POC Glucose 143 H 148 H Random Glucose Calcium Microbiology Microbiology Results: Microbiology 12/26/20 07:46 Blood - Venous Blood Culture - Final No growth after 5 days. 12/26/20 07:46 Blood - Venous Blood Culture - Final No growth after 5 days. 12/26/20 Unknown Urine Catheterized - Su Catheter Urine Culture - Final Escherichia coli Quality Stroke Does the patient have a stroke diagnosis?: No VTE Prior VTE?: No VTE Risk Level:: Medical - moderate - high VTE Device Contraindication: Treatment Not Indicated VTE Drug Contraindication: N/A - Med Ordered
[2020-12-31] MEDS: cloNIDine HCL 0.1 MG TABLET PO ×2 (12:57→22:10)
[2020-12-31 16:50] LABS: Glucose, Whole Blood 115 mg/dL (60-115)
[2020-12-31 20:22] LABS: Glucose, Whole Blood 124 mg/dL (60-115)
[2020-12-31] MEDS: Atorvastatin Calcium 80 MG TABLET PO (22:08)
[2021-01-01] MEDS: Acetaminophen 325 MG TABLET 650 MG PO ×2 (00:19→05:40)
[2021-01-01] MEDS: 0.9 % Sodium Chloride Flush 3 ML SYRINGE IVFLUSH ×2 (00:19→10:12)
[2021-01-01] MEDS: oxyCODONE HCl Immed Release 5 MG TABLET PO ×4 (02:24→14:23)
[2021-01-01 03:24] VITALS: BP 136/62; PULSE 65; RESP 18; TEMP 36.7; O2SAT 95
[2021-01-01 07:23] VITALS: BP 143/65; PULSE 64; RESP 18; TEMP 36.8; O2SAT 95
[2021-01-01 07:33] LABS: Glucose, Whole Blood 113 mg/dL (60-115)
[2021-01-01] MEDS: Clopidogrel Bisulfate 75 MG TABLET PO (10:04)
[2021-01-01] MEDS: Gabapentin 300 MG CAPSULE PO (10:04)
[2021-01-01] MEDS: Enoxaparin Sodium 40 MG/0.4 ML SYRINGE SUBCUT (10:04)
[2021-01-01 10:05] VITALS: BP 143/65
[2021-01-01] MEDS: cloNIDine HCL 0.1 MG TABLET PO (10:05)
[2021-01-01] MEDS: lisinopriL 5 MG TABLET PO (10:05)
[2021-01-01] MEDS: FLUoxetine HCl 20 MG CAPSULE PO (10:05)
[2021-01-01] MEDS: Metoprolol Tartrate 25 MG TABLET PO (10:05)
[2021-01-01] MEDS: Ammonium Lactate 12 % Lotion 226 GM BOTTLE 1 APPL TOPICAL (10:12)
[2021-01-01 11:01] LABS: COVID-19 Test Negative (Negative)
[2021-01-01 11:10] VITALS: BP 156/70; PULSE 66; RESP 18; TEMP 37; O2SAT 97
[2021-01-01 11:23] LABS: Glucose, Whole Blood 131 mg/dL (60-115)
--- NOTE | 2021-01-01 12:12 | MHC.CLN ---
F/U PO INTAKE VARIABLE DIET RX: 1800DM-APPROPRIATE PT RECEIVING GLUCERNA AND JEY BID PROVIDES [id number], 25G PROTEIN MONITOR PO INTAKE CLOSELY
--- NOTE | 2021-01-01 13:35 | PC.NURSE ---
Skin assessment completed. Patient has a surgical wound on right buttocks from an abscess. Still in healing process, silver alginate placed on wound covered with foam dressing. Patient has cellulitis with open ulcer on left leg, Triad applied to ulcers cover with gauze and roll gauze then liudmila wrap. No other open areas.
== END 2021-01-01 15:20 | disposition skilled nursing facility (03) | DRG 603 ==
LOC: HO.ED 08:34 → HO.EDOVER 09:30 → HO.ISO 10:28 → HO.IMC 12-28 15:57
PROVIDERS: Physician Assistant Medical; Admitting Provider Family Medicine; Emergency Provider Internal Medicine; PCP Internal Medicine; Visit Provider Nurse Practitioner Acute Care
DX: L03.116 Cellulitis of left lower limb (principal); Z68.41 Body mass index [BMI] 40.0-44.9, adult; N39.0 Urinary tract infection, site not specified; E66.2 Morbid (severe) obesity with alveolar hypoventilation; Z20.822 Contact with and (suspected) exposure to COVID-19; B96.20 Unspecified Escherichia coli [E. coli] as the cause of diseases classified elsewhere; E78.5 Hyperlipidemia, unspecified; F39 Unspecified mood [affective] disorder; Z89.511 Acquired absence of right leg below knee; I25.10 Atherosclerotic heart disease of native coronary artery without angina pectoris; F17.210 Nicotine dependence, cigarettes, uncomplicated; E87.5 Hyperkalemia; E11.42 Type 2 diabetes mellitus with diabetic polyneuropathy; Z71.6 Tobacco abuse counseling; Z88.5 Allergy status to narcotic agent; Z88.6 Allergy status to analgesic agent; Z79.4 Long term (current) use of insulin; Z79.02 Long term (current) use of antithrombotics/antiplatelets; Z79.891 Long term (current) use of opiate analgesic; Z79.899 Other long term (current) drug therapy
CPT/HCPCS: 36415; 36600; 71045; 80048; 80076; 81001; 82803; 82947; 83605; 83880; 84484; 85025; 85027; 85379; 85610; 85730; 87040; 87086; 87088; 87186; 87635; 93005; 93971; 96365; 96375; 97162; 99284; 99285; J0690; J1650; J1940; J2270; J2405

== ENCOUNTER 2021-01-02 07:59 | Emergency (ER) | payer OTHER, SELFPAY ==
[2021-01-02 08:12] VITALS: BP 125/53; O2SAT 95
[2021-01-02 08:13] VITALS: BP 155/61; PULSE 78; RESP 22; TEMP 37.3; O2SAT 96; BMI 80.6
--- NOTE | 2021-01-02 08:37 | PC.NURSE ---
pt states she is unable to allow us to clean her until she has a percocet for pain, states its too painful to lean back or roll to side
--- NOTE | 2021-01-02 08:39 | ED.GENADULT ---
HPI - General Adult General Chief complaint: General Medical Stated complaint: GEN PAIN D/T BED SIZE, PAIN FROM UMBIL HERNIA Time Seen by Provider: 01/02/21 08:39 Source: patient and EMS Mode of arrival: EMS Limitations: no limitations History of Present Illness HPI narrative: This is a 65-year-old female came in by ambulance from rehab for chronic pain issue. This is a 65-year-old female with multiple medical problems including DM, CAD-status post [place], right BKA due to diabetic foot infection, obesity hyperventilation syndrome. Patient was admitted for left lower extremities cellulitis patient left the hospital yesterday to a rehab place came back today to the hospital by ambulance because patient was unsatisfied of her pain control, patient is here today to get pain medication. Patient was offered to be sent back to rehab or find another facility for rehab patient this time would like to go home and her significant other will be taking care of her. Related Data Home Medications Medication Instructions Recorded Confirmed atorvastatin 80 mg tablet 80 mg PO DAILY 12/26/20 01/02/21 clonidine HCl 0.1 mg tablet 0.1 mg PO BID PRN 12/26/20 01/02/21 clopidogrel 75 mg tablet (Plavix) 75 mg PO DAILY 12/26/20 01/02/21 fluoxetine 20 mg capsule 20 mg PO DAILY 12/26/20 01/02/21 gabapentin 300 mg capsule 300 mg PO BID 12/26/20 01/02/21 insulin aspart U-100 100 unit/mL 25 unit SUBCUT TID 12/26/20 12/26/20 (3 mL) subcutaneous pen (Novolog Flexpen U-100 Insulin aspart) insulin glargine 100 unit/mL (3 85 unit SUBCUT BEDTIME 12/26/20 12/26/20 mL) subcutaneous pen (Lantus Solostar U-100 Insulin) ketoconazole 2 % topical cream 1 applic TOPICAL DAILY 12/26/20 12/26/20 lisinopril 5 mg tablet 5 mg PO DAILY 12/26/20 01/02/21 metoprolol tartrate 25 mg tablet 25 mg PO BID 12/26/20 01/02/21 nystatin 100,000 unit/gram topical 1 unit TOPICAL BID 12/26/20 12/26/20 powder (Nystop) oxycodone-acetaminophen 5 mg-325 1 tab PO TID 12/26/20 12/26/20 mg tablet Previous Rx's Medication Instructions Recorded cephalexin 500 mg capsule 500 mg PO BID 2 Days #4 cap 12/29/20 oxycodone 5 mg tablet 5 mg PO TID PRN #12 tab 01/01/21 Allergies Allergy/AdvReac Type Severity Reaction Status Date / Time acetaminophen [From PERCOCET] Allergy Unknown ITCHY Verified 12/26/20 12:37 Percocet Allergy Mild Itching Uncoded 12/26/20 12:37 From PERCOCET Allergy Unknown ITCHY Uncoded 12/30/19 15:01 Review of Systems Review of Systems: All other systems are reviewed and are negative Constitutional: Reports as per HPI and Reports no additional constitutional complaints Eyes: Reports as per HPI and Reports no additional eye complaints Reports system reviewed and no additional complaints, except as documented Cardiovascular: Reports as per HPI and Reports no additional cardiovascular complaints Respiratory: Reports as per HPI and Reports no additional respiratory complaints Gastrointestinal: Reports as per HPI and Reports no additional gastrointestinal complaints Genitourinary: Reports no additional female genitourinary complaints Musculoskeletal: Reports no additional musculoskeletal complaints Skin/Breast: Reports system reviewed and no additional complaints, except as docu Psychiatric: Reports no additional psychiatric complaints Endocrine: Reports no additional endocrine complaints Hematologic/Lymphatic: Reports no additional hematologic/lymphatic complaints Allergic/Immunologic: Reports no additional allergic/immunologic complaints Reports system reviewed and no additional complaints, except as documented and Reports Abnormal speech present [facility] Past Medical History Medical History CAD (coronary artery disease) Diabetes mellitus HTN (hypertension) with goal to be determined Neuropathy PAD (peripheral artery disease) Right below-knee amputee Surgical History Hx of right BKA Family History Family History Other Breast cancer Social History Social History Household Members: Spouse Housing: House Do you presently have visiting nurse or other home services: Yes (home health [facility]) Alcohol intake: never Patient Tobacco Use Status: Current everyday Tobacco user Tobacco use type: Cigarette Cigarette Packs Per Day: 1.5 Cigarettes Per Day: 30.0 e-Cigarette/Vaping Use: Never Used Second Hand Smoke Exposure: Yes Advance Directives: No Advance Directives Information Provided: No service: No Current occupational status: disabled Physical Exam Vital Signs: Vital Signs: Last Vital Signs Temp 99.1 F 01/02/21 08:13 Pulse 78 01/02/21 11:09 Resp 22 H 01/02/21 08:13 BP 155/61 H 01/02/21 11:09 Pulse Ox 96 01/02/21 11:09 Body Mass Index 80.6 Vital signs have been reviewed as appeared to be correct. Blood pressure normal. Heart rate normal. Respiration rate normal. Temperature normal. Oxygen saturation normal. Appearance: Alert. Oriented X3. No acute distress. Morbid pace Head: Normal external exam. Normocephalic. Atraumatic. No Duran signs noted. No raccoon eyes noted Eyes: PERRLA. EOMI. Conjunctiva and sclera normal. Eyelids normal. ENT: TM's Normal. Pharynx normal. Uvula midline. Moist mucous membranes. No trismus noted. No drooling noted. No muffled voice noted. Neck: Normal inspection. Neck supple. FROM. No adenopathy. Thyroid Normal. No meningeal signs. No neck mass noted. CVS: Normal heart rate and rhythm. Heart sound normal. No murmurs noted. Pulses normal throughout. Respiratory: Mild tachypnea likely due to body habitus No respiratory distress. Painless inspiration. Breath sounds normal. No wheezes/rales/rhonchi noted. Chest nontender. No accessory muscle usage noted or decreased air movement noted. Abdomen: Soft and nontender. Bowel sounds normal in all 4 quadrants. No distention noted. No organomegaly noted. No visible injury noted. Back: No CVA tenderness. Full range of motion noted. Skin: Skin warm and dry. Normal skin color. Normal skin turgor. No rashes/lesions/lacerations noted. Extremities: No lower extremity edema. Extremities exhibit normal range of motion. Extremities nontender. Status post right BKA Neuro: Oriented X 3. Cranial nerve exam: II-XII are grossly intact No motor deficit. No sensory deficit. Reflexes normal. Course Course Course Narrative: Assessment and plan. 65-year-old female was multiple medical comorbidity and chronic pain issue, patient was just discharged from the hospital to rehab place, patient was not satisfied with the rehab place return to the hospital today. Patient is refusing to go back to rehab place, no acute medical issue to admit the patient for. Patient will be going home with VNA. Patient is requesting Su catheter to go home with. pastoral worker/PT input is appreciated. Discharge Plan Discharge Clinical Impression: Morbid obesity Chronic back pain Qualifiers: Back pain location: low back pain Back pain laterality: unspecified Sciatica presence: without sciatica Qualified Code(s): M54.5 - Low back pain Patient Disposition: Home, Self-Care Instructions: Chronic Back Pain (DC) Prescriptions: No Action atorvastatin 80 mg tablet 80 mg PO DAILY RF: 0 clonidine HCl 0.1 mg tablet 0.1 mg PO BID PRN (Reason: anxiety) RF: 0 clopidogrel [Plavix] 75 mg tablet 75 mg PO DAILY RF: 0 oxycodone-acetaminophen 5-325 mg tablet 1 tab PO TID RF: 0 gabapentin 300 mg capsule 300 mg PO BID RF: 0 lisinopril 5 mg tablet 5 mg PO DAILY RF: 0 nystatin [Nystop] 100,000 unit/gram powder 1 unit topical BID RF: 0 ketoconazole 2 % cream 1 applic topical DAILY RF: 0 fluoxetine 20 mg capsule 20 mg PO DAILY RF: 0 metoprolol tartrate 25 mg tablet 25 mg PO BID RF: 0 Lantus Solostar U-100 Insulin 100 unit/mL (3 mL) insulin pen 85 unit subcut BEDTIME RF: 0 insulin aspart U-100 [Novolog Flexpen U-100 Insulin] 100 unit/mL (3 mL) insulin pen 25 unit subcut TID RF: 0 cephalexin 500 mg capsule 500 mg PO BID 2 Days Qty: 4 RF: 0 oxycodone 5 mg tablet 5 mg PO TID PRN (Reason: pain) Qty: 12 RF: 0 Referrals: [facility] [Other] - 2 days ([facility] will provide jail and physical therapy. ) Ruiz Moreira MD [Primary Care Provider] - 2 days
[2021-01-02] MEDS: oxyCODONE HCl Immed Release 5 MG TABLET PO (08:53)
[2021-01-02 11:09] VITALS: BP 155/61; PULSE 78; O2SAT 96
== END 2021-01-02 16:32 | disposition home or self-care (01) ==
PROVIDERS: Emergency Provider Emergency Medicine; PCP Internal Medicine
DX: M54.5 Low back pain (principal); E66.01 Morbid (severe) obesity due to excess calories; F17.210 Nicotine dependence, cigarettes, uncomplicated; Z71.6 Tobacco abuse counseling; Z79.899 Other long term (current) drug therapy; I25.10 Atherosclerotic heart disease of native coronary artery without angina pectoris; G89.29 Other chronic pain
CPT/HCPCS: 97162; 99283; 99284